=== PATIENT | female | born 1945 | race African-American/Black ===

== ENCOUNTER 2019-11-21 19:45 | Inpatient (IN) | payer OTHER ==
--- NOTE | 2019-11-21 20:03 | PDOC ---
Rapid Medical Evaluation Chief Complaint: Altered Mental Status Time Seen by Provider: 11/21/19 19:57 Medical Evaluation: 11/21/19 19:59 74 year old with pancreatitic CA BIB daughter c/o periods of confusion since yesterday after taking percocet. patient sent for evaluation since periods of confusion continued today. denies fever/ chills. patient seen at urgent care and was sent to ER for evaluation. PE: patient is Alert ox3. Last Vital Signs Temp Pulse Resp BP Pulse Ox 98.5 F 100 H 19 115/49 L 99 11/21/19 19:56 11/21/19 19:56 11/21/19 19:56 11/21/19 19:56 11/21/19 19:56 Oncologist : Dr. Sawyer Fried A: AMS P: LAbs EKG 11/21/19 20:02 Discharge Disposition - Diagnosis AMS (altered mental status) Qualifiers: Altered mental status type: disorientation Qualified Code(s): R41.0 - Disorientation, unspecified - Referrals - Patient Instructions - Post Discharge Activity
--- NOTE | 2019-11-21 20:40 | PDOC ---
History of Present Illness - General Chief Complaint: Altered Mental Status Stated Complaint: SICK Time Seen by Provider: 11/21/19 19:57 - History of Present Illness Initial Comments: This is a 74 YOF h/o DVT and pancreatic cancer presenting with AMS of 3 days duration. Patient reports that she was diagnosed with pancreatic cancer one week ago and has undergone 2 bouts of chemotherapy. Since this time she has had a decreased appetite and fatigue. On Thursday she began taking marinol and oxycodone and since then has been confused, weak, tired, and "not herself". She additionally adds that approximately 2 weeks ago she was diagnosed with a DVT in her right leg and has since been taking eloquis. She denies CP, SOB, cough, N/V/ D, fever, chills, changes in bowel or urinary habits, or recent falls/ trauma. Constitutional: No Weight Change, No Fever, No Chills, No Night Sweats, No Fatigue, No Malaise ENT/Mouth: No Hearing Changes, No Ear Pain, No Nasal Congestion, No Sinus Pain, No Hoarseness, No sore throat, No Rhinorrhea, No Swallowing Difficulty Eyes: No Eye Pain, No Swelling, No Redness, No Foreign Body, No Discharge, No Vision Changes Cardiovascular: No Chest Pain, No SOB, No PND, No Dyspnea on Exertion, No Or thopnea, No Claudication, No Edema, No Palpitations Respiratory: No Cough, No Sputum, No Wheezing, No Smoke Exposure, No Dyspnea Gastrointestinal: No Nausea, No Vomiting, No Diarrhea, No Constipation, No Pain, No Heartburn, No Anorexia, No Dysphagia, No Hematochezia, No Melena, No Flatulence, No Jaundice Genitourinary: No Dysmenorrhea, No DUB, No Dyspareunia, No Dysuria, No Urinary Frequency, No Hematuria, No Urinary Incontinence, No Urgency, No Flank Pain, No Urinary Flow Changes, No Hesitancy Musculoskeletal: No Arthralgias, No Myalgias, No Joint Swelling, No Joint Stiffness, No Back Pain, No Neck Pain, No Injury History Skin: No Skin Lesions, No Pruritis, No Hair Changes, No Breast/Skin Changes, No Nipple Discharge Neuro: No Weakness, No Numbness, No Paresthesias, No Loss of Consciousness, No Syncope, No Dizziness, No Headache, No Coordination Changes, No Recent Falls Psych: No Anxiety/Panic, No Depression, No Insomnia, No Personality Changes, No Delusions, No Rumination, No SI/HI/AH/VH, No Social Issues, No Memory Changes, No Violence/Abuse Hx., No Eating Concerns Heme/Lymph: No Bruising, No Bleeding, No Transfusions History, No Lymphadenopathy Endocrine: No Polyuria, No Polydipsia, No Temperature Intolerance 11/21/19 22:03 Past History - Medical History Allergies/Adverse Reactions: Allergies Allergy/AdvReac Type Severity Reaction Status Date / Time codeine Allergy Verified 11/21/19 21:56 dronabinol [From Marinol] Allergy Verified 11/24/19 11:02 oxycodone Allergy Verified 11/24/19 11:02 Home Medications: Ambulatory Orders Apixaban [Eliquis] 2.5 mg PO BID 11/22/19 Metformin HCl [Glucophage] 500 mg PO DAILY 11/22/19 Pantoprazole Sodium [Protonix] 40 mg PO DAILY 11/22/19 Cancer: Yes (pancreatic) COPD: No Diabetes: Yes - Psycho-Social/Smoking History Smoking History: Never smoked - Substance Abuse Hx (Audit-C & DAST Scrn) How often the patient has a drink containing alcohol: Never Score: In Men: 4 or > Positive; In Women: 3 or > Positive: 0 Screen Result (Pos requires Nsg. Audit-10AR): Negative In the last yr the pt used illegal drug/Rx for NonMed reason: No Score: Yes response is considered Positive: 0 Screen Result (Positive result requires Nsg. DAST-10): Negative *Physical Exam - Vital Signs Last Vital Signs Temp Pulse Resp BP Pulse Ox 98.5 F 100 H 19 115/49 L 99 11/21/19 19:56 11/21/19 19:56 11/21/19 19:56 11/21/19 19:56 11/21/19 19:56 - Physical Exam General Appearance: Yes: Appropriately Dressed, Thin HEENT: positive: EOMI, DEENA, Normal ENT Inspection, Normal Voice Neck: positive: Trachea midline, Normal Thyroid, Supple Respiratory/Chest: positive: Lungs Clear, Normal Breath Sounds Cardiovascular: positive: Regular Rhythm, S1, S2 Gastrointestinal/Abdominal: positive: Normal Bowel Sounds, Flat, Soft Musculoskeletal: positive: Normal Inspection Extremity: positive: Normal Capillary Refill, Normal Inspection, Normal Range of Motion Integumentary: positive: Normal Color, Dry, Warm Neurologic: positive: career center advisor II-XII NML intact, Fully Oriented, Alert, Normal Mood/Affect, Normal Response, Motor Strength 09/05 ED Treatment Course - LABORATORY CBC & Chemistry Diagram: 11/22/19 05:53 11/22/19 05:53 Medical Decision Making - Medical Decision Making This is a 74 YOF h/o DVT and pancreatic cancer presenting with AMS of 3 days duration. Patient reports that she was diagnosed with pancreatic cancer one week ago and has undergone 2 bouts of chemotherapy. Since this time she has had a decreased appetite and fatigue. On Thursday she began taking marinol and oxycodone and since then has been confused, weak, tired, and "not herself". She additionally adds that approximately 2 weeks ago she was diagnosed with a DVT in her right leg and has since been taking eloquis. She denies CP, SOB, cough, N/V/D, fever, chills, changes in bowel or urinary habits, or recent falls/ trauma. Physical exam including neuro exam are wnl. Selected Entries 11/21/19 19:56 Temperature 98.5 F Pulse Rate 100 H Respiratory 19 Rate Blood Pressure 115/49 L Blood Pressure 71 Mean O2 Sat by Pulse 99 Oximetry (%) Weight 53.524 kg ddx includes but is not limited to: malaise, anemia, side effects related to chemotheraputic agents and pain medications, CVA, UTI, Pneumonia plan: CXR, CT head, UA/UC, CBC, CMP, 1LNS Reassess: Troponin came back positive at 2.23. Ct scan shows a small low density focus involving the right frontal lobe that appears to represent age indeterminate encephalomalacia. Labs and imagining otherwise wnl. Will admit patient for elevated troponin. dispo: admit patient to tele. Discharge - Discharge Information Problems reviewed: Yes Clinical Impression/Diagnosis: AMS (altered mental status), Elevated troponin Condition: Improved Disposition: HOME - Follow up/Referral - Patient Discharge Instructions - Post Discharge Activity
--- NOTE | 2019-11-21 21:49 | PDOC ---
Documentation entered by Jessy Monteiro SCRIBE, acting as scribe for Vivienne Artis MD. Vivienne Artis MD: This documentation has been prepared by the Justin desir Xhesika, SCRIBE, under my direction and personally reviewed by me in its entirety. I confirm that the documentation accurately reflects all work, treatment, procedures, and medical decision making performed by me. Attending Attestation - Resident Resident Name: Marcio Cruz - ED Attending Attestation I have performed the following: I have examined & evaluated the patient, The case was reviewed & discussed with the resident, I agree w/resident's findings & plan, Exceptions are as noted - HPI HPI: 11/21/19 20:44 The patient is a 74 year old F with a PMH of pancreatitic CA (2 rounds of chemo), recent DVT on eliquis who presents to the ED with intermittent AMS. Per daughter the pt has been having periods of confusion since yesterday after taking percocet, which continued today. Per daughter, the patient took percocet on Thursday (11/17), and was "out of it all day," then took it again Thursday (11/18) and was fine. Daughter states, yesterday (11/19) she took another percocet and was altered again, prompting her arrival to the ED today. Allergies: NKDA Oncologist: Dr. Henriquez - [facility] - Physicial Exam PE: 11/21/19 21:41 thin 74 yo female presents becaduse of dughter;s concern about her alertness which has been waxing and waning over past 3 days head ncat neck supple lungs cta b.l cvs [id number] abd flat extremities no erythema skin warm and dry neuro alert and conversant,motor strength 5/5 b/l - Medical Decision Making 11/21/19 21:49 Diagnosed in September w pancreatic cancer and currently on chemotherapy Dr Sawyer Fried was being covered by Dr Enrrique Fried and I spoke with him. the original plan was to check her UA and ct scan of head and if they were normal she would followup with them but then her troponin came back positive at 2.23 11/21/19 23:11 11/21/19 23:31 07/21/20 01:55 ct scan of head -there is a tiny low density focus involving the right frontal lobe tht appears to represent age indeterminate encephalomalacia admit tele 11/22/19 02:15 Discharge - Discharge Information Problems reviewed: Yes Clinical Impression/Diagnosis: Elevated troponin AMS (altered mental status) Qualifiers: Altered mental status type: disorientation Qualified Code(s): R41.0 - Disorientation, unspecified - Follow up/Referral - Patient Discharge Instructions - Post Discharge Activity
[2019-11-21 21:56] LABS: BASO % 0.6 % (0-2.0); EOS % 2.4 % (0-4.5); HEMOGLOBIN 8.1 GM/dL (10.7-15.3); LYMPH % 32.6 % (8-40); MCH 32.7 pg (25.7-33.7); MCHC 33.8 g/dl (32.0-36.0); MEAN CELL VOLUME 96.7 fl (80-96); MEAN PLT VOLUME 8.2 fl (7.5-11.1); MONO % 14.1 % (3.8-10.2); NEUT % 50.3 % (42.8-82.8); PLATELET COUNT 257 K/MM3 (134-434); RBC 2.48 M/mm3 (3.60-5.2); RDW 15.9 % (11.6-15.6); WHITE BLOOD COUNT 7.7 K/mm3 (4.0-10.0)
[2019-11-21 22:15] LABS: INR 1.34 (0.83-1.09); PROTHROMBIN TIME (PATIENT) 15.8 SEC (9.7-13.0)
[2019-11-21 22:18] LABS: ACTIVATED PTT 24.2 SECONDS (25.2-36.5)
[2019-11-21 22:35] LABS: ALBUMIN 3.1 g/dl (3.4-5.0); BLOOD UREA NITROGEN 9.1 mg/dL (7-18); CALCIUM 9.1 mg/dL (8.5-10.1); CREATININE 0.5 mg/dL (0.55-1.3); TOT PROT 6.9 g/dl (6.4-8.2)
[2019-11-21 22:35] LABS: EPI CELLS 29 /uL (0-25.1); HYALINE CASTS 7 /uL (0-3.1); PH,URINE 5.5 (5.0-8.0); URINE APPEARANCE CLEAR; URINE BACTERIA 97 /uL (0-1359); URINE BILIRUBIN NEGATIVE (NEGATIVE); URINE COLOR YELLOW; URINE GLUCOSE (UA) NEGATIVE (NEGATIVE); URINE KETONE TRACE (NEGATIVE); URINE LEUK ESTERASE TRACE (NEGATIVE); URINE NITRITE NEGATIVE (NEGATIVE); URINE PROTEIN 1+ (NEGATIVE); URINE RBC 18 /uL (0-23.9); URINE WBC 25 /uL (0-25.8)
[2019-11-21 22:45] LABS: BILIRUBIN,TOTAL 0.6 mg/dL (0.2-1)
--- NOTE | 2019-11-22 01:50 | PN ---
Teaching Attending Note Name of Resident: Cynthia Harris ATTENDING PHYSICIAN STATEMENT I saw and evaluated the patient. I reviewed the resident's note and discussed the case with the resident. I agree with the resident's findings and plan as documented. SUBJECTIVE: Patient is a 74 year old woman with a PMH of DVT and Pancreatic cancer (on chemotherapy) presenting with AMS of 3 days duration. Patient reports that she was diagnosed with pancreatic cancer one week ago and has undergone 2 bouts of chemotherapy. Since then she has had decreased appetite and fatigue. On Thursday she began taking Marinol and Oxycodone and since then has been confused, weak, tired, and "not herself". She additionally adds that approximately 2 weeks ago she was diagnosed with a DVT in her right leg and has since been taking Eliquis. Patient denies chest pain, shortness of breath, abdominal pain, headache, palpitations, dizziness, fever, chills, nausea, vomiting, diarrhea, constipation, dysuria, frequency, urgency, melena, hematochezia or hematuria. Denies alcohol, tobacco or illicit drug use. No sick contacts or recent travels. Family history is unremarkable. OBJECTIVE: Alert and weak; unable to check orthostasis Vital Signs Period Temp Pulse Resp BP Sys/Zepeda Pulse Ox Last 24 Hr 98.5 F 100 19 115/49 99 HEENT: No Jaundice, eye redness or discharge, PERRLA, EOMI. Normocephalic, atraumatic. External ears are normal and hearing is grossly intact. No nasal discharge. Neck: Supple, nontender. No palpable adenopathy or thyromegaly. No JVD Chest: Good effort. Clear to auscultation and percussion. Heart: Regular. No S3, rub or murmur Abdomen: Not distended, soft, epigastric tenderness and no HSM. No rebound or guarding. Normal bowel sounds. Ext: Peripheral pulses intact. No leg edema. Skin: Warm and dry. No petechiae, rash or ecchymosis. Neuro: Alert. Oriented to person and place. Global weakness. CN 2-12 grossly intact. Sensation grossly intact in all four extremities and DTR are symmetric. Psych: Appropriate mood and affect. Good insight. Abnormal Lab Results 11/21/19 11/21/19 11/21/19 21:40 21:40 21:40 RBC 2.48 L Hgb 8.1 L Hct 24.0 L MCV 96.7 H RDW 15.9 H Monocytes % 14.1 H PT with INR 15.80 H INR 1.34 H PTT (Actin FS) 24.2 L Sodium 132 L Chloride 96 L Creatinine 0.5 L AST 75 H Alkaline Phosphatase 362 H Troponin I 2.23 H* Albumin 3.1 L Urine Protein Urine Ketones 11/21/19 11/22/19 21:44 01:07 RBC Hgb Hct MCV RDW Monocytes % PT with INR INR PTT (Actin FS) Sodium Chloride Creatinine AST Alkaline Phosphatase Troponin I 2.15 H* Albumin Urine Protein 1+ H Urine Ketones Trace H Current Medications Generic Name Dose Route Start Last Admin Trade Name Freq PRN Reason Stop Dose Admin Acetaminophen 1,000 mg 11/22/19 04:15 Ofirmev Injection - IVPB Q6H PRN PAIN LEVEL 6-10 Sodium Chloride 1,000 mls @ 75 mls/hr 11/22/19 04:15 11/22/19 04:56 Normal Saline - IV 75 mls/hr ASDIR ADELAIDA Administration Ceftriaxone Sodium 1 gm/ 50 mls @ 200 mls/hr 11/22/19 10:00 Dextrose IVPB DAILY ADELAIDA Protocol Insulin Aspart 0 vial 11/22/19 07:00 Novolog Vial Sliding Scale - SQ ACHS ADELAIDA Protocol Ketorolac Tromethamine 15 mg 11/22/19 04:19 Toradol Injection - IVPUSH 11/27/19 04:18 Q4H PRN PAIN LEVEL 6-10 ASSESSMENT AND PLAN: 1. Acute confusional state/Elevated troponin/?UTI - AMS likely due to drug side effects (Marinol/Oxycodone) and debility associated with cancer and chemotherapy. No acute intracranial abnormality on head CT. CXR shows right chest central line but no acute abnormality. Will hold Marinol and Oxycodone, hydrate gently and treat UTI with IV Ceftriaxone. Consult Neurology and Oncology. EKG shows NSR at 91/minute and QTc [address]-T wave changes. Troponin is elevated but not rising (2.23; 2.15) and she is not having chest pain. Will admit to telemetry, trend troponin, get ECHO, fasting lipids and consult Cardiology. Viral testing for COVID-19 ordered and patient placed on airborne, droplet and contact isolation. Started on supplemental oxygen via nasal cannula. Hyponatremia likely partly due to poor solute intake. Will ensure adequate caloric intake, give IV NS and limit free water intake. Will continue comprehensive care for all of patients comorbid conditions. 2. Hypoalbuminemia - Possibly due to combined effects of proteinuria, malnutrition and inflammation associated with comorbid conditions. Will ensure adequate dietary protein intake and also consult dispatcher relay. 3. Anemia - Likely partly due to cancer. Will do basic anemia work up including folate/B12 levels, serial stool guaiacs, reticulocyte count and iron studies. 4. DVT prophylaxis - On Eliquis for DVT. 5. Advance directives - Full code
[2019-11-22] MEDS ORDERED: ACETAMINOPHEN 1000 MG/100 ML VIAL (NON FORMULARY) IVPB PRN (04:15)
[2019-11-22] MEDS ORDERED: KETOROLAC TROMETHAMINE 15 MG/ML VIAL IVPUSH PRN (04:19)
[2019-11-22] MEDS: SODIUM CHLORIDE 1,000 ML IV SCH (04:56)
--- NOTE | 2019-11-22 06:07 | HP ---
CHIEF COMPLAINT: AMS HISTORY OF PRESENT ILLNESS: Pt is a 74 year old female with a PMHx of pancreatic cancer diagnosed 1 month ago (2 rounds of chemo done), R leg DVT on Eliquis, and DM. Daughter completing most of history as patient is lethargic. Pt completed 2 rounds of chemo and on oxycodone and marinol on Thursday and noticed pt became very lethargic. The next day, oxycodone was taken without marinol and there were no symptoms. On Thursday, pt took oxycodone again and once again became lethargic that continued into Thursday. Denies any LOC, trauma. Daughter then brought pt to the ER for ongoing symptoms. Trops in ED 2.33 and 2.15. EKG without any ischemic changes. Pt had leg pain last week and oncologist did LE US which showed DVT, being treated with Eliquis. Denies fever and chills, chest pain, SOB, palpitations, leg edema, pain, issues. Admits to epigastric abdominal pain and lethargy and weakness. PAST MEDICAL HISTORY: As stated above PAST SURGICAL HISTORY: Cholecystectomy Hysterecomy Social History: Smoking: Denies Alcohol: Socially Drugs: Denies Allergies codeine Allergy (Verified 11/21/19 21:56) HOME MEDICATIONS: REVIEW OF SYSTEMS CONSTITUTIONAL: Admits: lethargy, loss of appetite Absent: fever, chills, diaphoresis, malaise, weight change HEENT: Absent: rhinorrhea, nasal congestion, throat pain, throat swelling, difficulty swallowing, mouth swelling, ear pain, eye pain, visual changes CARDIOVASCULAR: Absent: chest pain, syncope, palpitations, irregular heart rate, lightheadedness, peripheral edema RESPIRATORY: Absent: cough, shortness of breath, dyspnea with exertion, orthopnea, wheezing, stridor, hemoptysis GASTROINTESTINAL: Present: abdomnial pain Absent: abdominal pain, abdominal distension, nausea, vomiting, diarrhea, constipation, melena, hematochezia GENITOURINARY: Absent: dysuria, frequency, urgency, hesitancy, hematuria, flank pain, genital pain MUSCULOSKELETAL: Absent: myalgia, arthralgia, joint swelling, back pain, neck pain SKIN: Absent: rash, itching, pallor HEMATOLOGIC/IMMUNOLOGIC: Absent: easy bleeding, easy bruising, lymphadenopathy, frequent infections ENDOCRINE: Absent: unexplained weight gain, unexplained weight loss, heat intolerance, cold intolerance NEUROLOGIC: Absent: headache, focal weakness or paresthesias, dizziness, unsteady gait, seizure, mental status changes, bladder or bowel incontinence PSYCHIATRIC: Absent: anxiety, depression, suicidal or homicidal ideation, hallucinations. PHYSICAL EXAMINATION Vital Signs - 24 hr 11/21/19 11/22/19 19:56 04:45 Temperature 98.5 F 98.3 F Pulse Rate 100 H Pulse Rate [ 100 H Radial] Respiratory 19 18 Rate Blood Pressure 115/49 L Blood Pressure 135/82 [Left Arm] O2 Sat by Pulse 99 100 Oximetry (%) GENERAL: Awake, alert, and fully oriented, in no acute distress. HEAD: Normal with no signs of trauma. EYES: Pupils equal, round and reactive to light, extraocular movements intact, sclera anicteric, conjunctiva clear. No lid lag. EARS, NOSE, THROAT: Ears normal, nares patent, oropharynx clear without exudates. Moist mucous membranes. NECK: Normal range of motion, supple without lymphadenopathy, JVD, or masses. LUNGS: Breath sounds equal, clear to auscultation bilaterally. No wheezes, and no crackles. No accessory muscle use. HEART: Regular rate and rhythm, normal S1 and S2 without murmur, rub or gallop. ABDOMEN: Epigastric tenderness. normoactive bowel sounds, no guarding, no rebound, no masses. No hepatomegaly or splenomegaly. MUSCULOSKELETAL: Normal range of motion at all joints. No bony deformities or tenderness. No CVA tenderness. UPPER EXTREMITIES: 2+ pulses, warm, well-perfused. No cyanosis. No clubbing. No peripheral edema. LOWER EXTREMITIES: 2+ pulses, warm, well-perfused. No calf tenderness. No peripheral edema. NEUROLOGICAL: Cranial nerves II-XII intact. Normal speech. Normal gait. PSYCHIATRIC: Cooperative. Good eye contact. Appropriate mood and affect. SKIN: Warm, dry, normal turgor, no rashes or lesions noted, normal capillary refill. Laboratory Results - last 24 hr 11/21/19 11/21/19 11/21/19 21:40 21:40 21:40 WBC 7.7 RBC 2.48 L Hgb 8.1 L Hct 24.0 L MCV 96.7 H MCH 32.7 MCHC 33.8 RDW 15.9 H Plt Count 257 MPV 8.2 Absolute Neuts (auto) 3.9 Neutrophils % 50.3 Lymphocytes % 32.6 Monocytes % 14.1 H Eosinophils % 2.4 Basophils % 0.6 Nucleated RBC % 0 PT with INR 15.80 H INR 1.34 H PTT (Actin FS) 24.2 L Sodium 132 L Potassium 4.0 Chloride 96 L Carbon Dioxide 28 Anion Gap 8 BUN 9.1 Creatinine 0.5 L Est GFR (CKD-EPI)AfAm 112.07 Est GFR (CKD-EPI)NonAf 96.69 Random Glucose 95 Calcium 9.1 Total Bilirubin 0.6 AST 75 H ALT 39 Alkaline Phosphatase 362 H Creatine Kinase 127 Troponin I 2.23 H* Total Protein 6.9 Albumin 3.1 L Urine Color Urine Appearance Urine pH Ur Specific [place] Urine Protein Urine Glucose (UA) Urine Ketones Urine Blood Urine Nitrite Urine Bilirubin Urine Urobilinogen Ur Leukocyte Esterase Urine WBC (Auto) Urine RBC (Auto) Urine Casts (Auto) U Epithel Cells (Auto) Urine Bacteria (Auto) Blood Type Antibody Screen 11/21/19 11/22/19 11/22/19 21:44 01:07 01:07 WBC RBC Hgb Hct MCV MCH MCHC RDW Plt Count MPV Absolute Neuts (auto) Neutrophils % Lymphocytes % Monocytes % Eosinophils % Basophils % Nucleated RBC % PT with INR INR PTT (Actin FS) Sodium Potassium Chloride Carbon Dioxide Anion Gap BUN Creatinine Est GFR (CKD-EPI)AfAm Est GFR (CKD-EPI)NonAf Random Glucose Calcium Total Bilirubin AST ALT Alkaline Phosphatase Creatine Kinase 116 Troponin I 2.15 H* Total Protein Albumin Urine Color Yellow Urine Appearance Clear Urine pH 5.5 Ur Specific [place] 1.020 Urine Protein 1+ H Urine Glucose (UA) Negative Urine Ketones Trace H Urine Blood Trace Urine Nitrite Negative Urine Bilirubin Negative Urine Urobilinogen 1.0 Ur Leukocyte Esterase Trace Urine WBC (Auto) 25 Urine RBC (Auto) 18 Urine Casts (Auto) 7 U Epithel Cells (Auto) 29 Urine Bacteria (Auto) 97 Blood Type A POSITIVE Antibody Screen Negative ASSESSMENT/PLAN: Pt is a #AMS -Likely secondary to oxycodone and marinol; hold -Switched to Ketorolac and Tylenol -Consulted neurology to rue out other causes #Elevated troponins -Follow up AM troponin -Repeat EKG in AM -Echo in AM -Cardio consulted -Studies show FOLFARINOX can be associated with increased troponin and vasopasm -Another study shows certain cancers (including pancreatic) can have over expression of Troponin gene #Pancreatic Cancer -Consulted oncology -Palliative care consulted to discuss goals of care #UTI -Started on Rocephin for UTI -Treated ensure UTI wasnt possible cause of AMS #Transaminitis -AST 75, ALP 362 -RUQ US to evaluate -Possibly secondary to pancreas obstructing biliary ducts #Anemia -Likely secondary to cancer -B12, folate, retic, FOBT ordered #Hyponatremia -On NS at 75cc hr -Follow up AM labs Prophylaxis: On Eliquis for DVT FEN: -NS at 75cc hr -Diabetic diet Dispo Family Medical History Family History: Unremarkable Problem List - Problem (1) Elevated troponin Code(s): R79.89 - OTHER SPECIFIED ABNORMAL FINDINGS OF BLOOD CHEMISTRY (2) Pancreatic cancer Code(s): C25.9 - MALIGNANT NEOPLASM OF PANCREAS, UNSPECIFIED Qualifiers: Pancreatic malignancy location: unspecified Qualified Code(s): C25.9 - Malignant neoplasm of pancreas, unspecified (3) AMS (altered mental status) Code(s): R41.82 - ALTERED MENTAL STATUS, UNSPECIFIED Qualifiers: Altered mental status type: disorientation Qualified Code(s): R41.0 - Disorientation, unspecified Visit type - Medication Review Med list reviewed for High Risk Meds patients 65 and older: No - Emergency Visit Emergency Visit: Yes ED Registration Date: 11/22/19 Care time: The patient presented to the Emergency Department on the above date and was hospitalized for further evaluation of their emergent condition. - New Patient This patient is new to me today: Yes Date on this admission: 11/22/19 - Critical Care Critical Care patient: No ATTENDING PHYSICIAN STATEMENT I saw and evaluated the patient. I reviewed the resident's note and discussed the case with the resident. I agree with the resident's findings and plan as documented. SUBJECTIVE: OBJECTIVE: ASSESSMENT AND PLAN:
[2019-11-22 07:05] LABS: BASO % 0.4 % (0-2.0); EOS % 2.3 % (0-4.5); HEMATOCRIT 21.8 % (32.4-45.2); HEMOGLOBIN 7.4 GM/dL (10.7-15.3); LYMPH % 29.8 % (8-40); MCH 32.6 pg (25.7-33.7); MCHC 33.7 g/dl (32.0-36.0); MEAN CELL VOLUME 96.7 fl (80-96); MEAN PLT VOLUME 8.2 fl (7.5-11.1); MONO % 16.7 % (3.8-10.2); NEUT % 50.8 % (42.8-82.8); PLATELET COUNT 213 K/MM3 (134-434); RBC 2.26 M/mm3 (3.60-5.2); RDW 15.8 % (11.6-15.6); WHITE BLOOD COUNT 6.6 K/mm3 (4.0-10.0)
[2019-11-22] MEDS: INSULIN SLIDING SCALE (NOVOLOG) 1 VIAL SQ SCH ×4 (07:22→22:55)
[2019-11-22 07:43] LABS: ALBUMIN 2.6 g/dl (3.4-5.0); BILIRUBIN,TOTAL 0.6 mg/dL (0.2-1); BLOOD UREA NITROGEN 7.8 mg/dL (7-18); CALCIUM 8.3 mg/dL (8.5-10.1); CREATININE 0.5 mg/dL (0.55-1.3); MAGNESIUM 2.3 mg/dL (1.8-2.4); PHOSPHOROUS 2.8 mg/dL (2.5-4.9); POTASSIUM 3.8 mmol/L (3.5-5.1); TOT PROT 6.1 g/dl (6.4-8.2)
[2019-11-22] MEDS ORDERED: CEFTRIAXONE 1 GM/50 ML BAG ONE (09:37)
[2019-11-22] MEDS ORDERED: APIXABAN 2.5 MG TABLET ONE ×2 (09:37)
[2019-11-22] MEDS ORDERED: CEFTRIAXONE 1 GM in DEXTROSE 5%-WATER - 50 ML IVPB SCH (10:00)
[2019-11-22] MEDS: APIXABAN 5 MG TABLET PO SCH ×2 (11:10→22:54)
--- NOTE | 2019-11-22 11:18 | ECHO ---
Name: LISS SALAZAR Exam:Adult Echocardiogram Study Date: 11/22/2019 09:17 AM Age: 74 yrs Reason For Study: heart function MMode/2D Measurements & Calculations IVSd: 0.88 cm Ao root diam: 2.5 cm LVIDd: 3.1 cm LA dimension: 2.2 cm LVIDs: 2.3 cm LVPWd: 1.2 cm LVPWs: 1.5 cm EDV(Teich): 38.6 ml ESV(Teich): 17.5 ml LVOT diam: 1.9 cm Doppler Measurements & Calculations MV E max valery: 61.6 cm/sec Ao V2 max: 108.1 cm/sec MV A max valery: 83.4 cm/sec Ao max P.7 mmHg MV E/A: 0.74 SABINA(V,D): 2.1 cm2 MV dec time: 0.11 sec LV V1 max P.6 mmHg TR max valery: 211.7 cm/sec LV V1 max: 80.5 cm/sec TR max P.3 mmHg PA V2 max: 107.9 cm/sec PA max P.7 mmHg Procedure A two-dimensional transthoracic echocardiogram with color flow and Doppler was performed. The patient was in normal sinus rhythm during the exam. Left Ventricle The left ventricle is normal in size. The left ventricular ejection fraction is normal. Ejection Frac tion = 60. The transmitral spectral Doppler flow pattern is suggestive of impaired LV relaxation. Right Ventricle The right ventricle is not well visualized. Atria Normal left and right atrial size and function. Mitral Valve The mitral valve is normal. There is trace mitral regurgitation. Tricuspid Valve The tricuspid valve is normal. There is mild tricuspid regurgitation. Right ventricular systolic pres sure is normal. Aortic Valve The aortic valve is normal in structure and function. No aortic regurgitation is present. Pulmonic Valve The pulmonic valve is not well seen, but is grossly normal. Trace pulmonic valvular regurgitation. Great Vessels The aortic root is normal size. Pericardium/Pleura There is no pericardial effusion. Interpretation Summary The left ventricular ejection fraction is normal. The transmitral spectral Doppler flow pattern is suggestive of impaired LV relaxation. The right ventricle is not well visualized. There is trace mitral regurgitation. There is mild tricuspid regurgitation. Trace pulmonic valvular regurgitation. There is no pericardial effusion. MD Bandar Canales 11/22/2019 11:17 AM
--- NOTE | 2019-11-22 12:05 | EKG ---
Test Reason : Blood Pressure : / mmHG Vent. Rate : 091 BPM Atrial Rate : 091 BPM P-R Int : 142 ms QRS Dur : 076 ms QT Int : 354 ms P-R-T Axes : 074 058 060 degrees QTc Int : 435 ms NORMAL SINUS RHYTHM NORMAL ECG NO PREVIOUS ECGS AVAILABLE Confirmed by Torey Bond MD ([id number]) on 11/22/2019 12:05:01 PM Referred By: Confirmed By:Torey Bond MD
--- NOTE | 2019-11-22 12:05 | EKG ---
Test Reason : Blood Pressure : / mmHG Vent. Rate : 093 BPM Atrial Rate : 093 BPM P-R Int : 144 ms QRS Dur : 086 ms QT Int : 346 ms P-R-T Axes : 078 060 062 degrees QTc Int : 430 ms NORMAL SINUS RHYTHM MINIMAL VOLTAGE CRITERIA FOR LVH, MAY BE NORMAL VARIANT BORDERLINE ECG WHEN COMPARED WITH ECG OF 21-NOV-2019 22:17, NO SIGNIFICANT CHANGE WAS FOUND Confirmed by Torey Bond MD ([id number]) on 11/22/2019 12:04:45 PM Referred By: Abhijit VO Confirmed By:Torey Bond MD
--- NOTE | 2019-11-22 12:12 | CONSULT ---
Consultation: REQUESTING PROVIDER: Dr. Sanchez CONSULT REQUEST: We have been asked to medically evaluate this patient for Hx. of Pancreatic CA and to rule out involvement of the brain causing altered mental status. HISTORY OF PRESENT ILLNESS: Pt. is a 74 y.o. F w/ PMHx. of DM2, GERD(noted to have gastric ulcer in EGD September), RLE DVT(on Eliquis), and Metastatic Pancreatic CA(Ddx. 1 month ago, s/p 2 rounds of FOLFIRINOX- last on ). Pt. states she had CT scan of her abdomen demonstrating metastases to her liver and believes she had imaging of her chest. Pt. denies having a Brain MRI. Pt. states that the symptoms of lethargy, slurred speech and dysphasia(the reason for presenting to the hospital and admission) happened shortly after taking oxycodone and marinol. Pt. unclear about the sequence of events and number of attempts but stated that on Thursday after taking the oxycodone and the marinol that her symptoms began. Pt. denies any black colored stool. Pt. endorses weight loss of over 20 lbs since . Pt. endorses decreased appetite over Thursday and Thursday stating her appetite began to finally improve yesterday. Pt. endorses chronic constipation over the last few months and abdominal pain since July, workup was delayed because of the Pandemic. Pt. endorses numbness in her left hand but s unable to tell me when she first noticed it. Pt. denies having any blood in her urine or stool. Pt. lives in [place] but is staying in [place] with her daughter. Pt. unsure of her return date to [place]. Pt. is a retired [employer] for a "[employer] in [place]" Pt. endorses Hx. of Breast CA in her mother diagnosed at age 82 Pt. states she gets "pains in her stomach" from codeine and was told not to take anymore codeine. Pt. denies taking oxycodone prior to this experience. Discussed with Dr. Mauricio Fried that Pt. had an episode of tarry black stool after first course of treatment and was seen at [facility]. Pt. had unremarkable EGD (11/04). Pt. was later found to have R. Peroneal DVT and started on Eliquis 2.5mg by Dr. Fried. Last recorded HgB at his office on 11/13 was 8.8/26. Pt. did not have any head imaging as there was no indication to do so. REVIEW OF SYSTEMS: As above PHYSICAL EXAMINATION Vital Signs - 24 hr 11/21/19 11/22/19 11/22/19 19:56 04:45 06:30 Temperature 98.5 F 98.3 F 98.4 F Pulse Rate 100 H Pulse Rate [ 100 H 97 H Radial] Respiratory 19 18 16 Rate Blood Pressure 115/49 L Blood Pressure 135/82 152/77 [Left Arm] O2 Sat by Pulse 99 100 100 Oximetry (%) 11/22/19 11/22/19 08:00 11:00 Temperature Pulse Rate Pulse Rate [ 92 H Radial] Respiratory 16 Rate Blood Pressure Blood Pressure 160/85 [Left Arm] O2 Sat by Pulse 99 100 Oximetry (%) GENERAL: Awake, alert, and fully oriented, in no acute distress. HEAD: Normal with no signs of trauma. EYES: Pupils equal, round and reactive to light, extraocular movements intact, sclera anicteric, conjunctiva clear. EARS, NOSE, THROAT: Moist mucous membranes. LUNGS: Breath sounds equal, clear to auscultation bilaterally. No wheezes, and no crackles. No accessory muscle use. HEART: Regular rate and rhythm, normal S1 and S2 without murmur ABDOMEN: Soft, LUQ and epigastric tenderness tender, not distended, normoactive bowel sounds MUSCULOSKELETAL: Normal range of motion at all joints. No CVA tenderness. UPPER EXTREMITIES: warm, well-perfused. No cyanosis. No clubbing. No peripheral edema. LOWER EXTREMITIES: 2+ dorsal pedal pulses, warm, well-perfused. No calf tenderness. No peripheral edema. NEUROLOGICAL: Cranial nerves II-XII intact. Some confusion finding words, and speed of speech. Gait not assessed. Left hand numbness compared to the right. Lower extremities with equal sensation. PSYCHIATRIC: Cooperative. Good eye contact. Appropriate mood and affect. SKIN: Warm, dry, normal turgor, no rashes or lesions noted. Laboratory Results - last 24 hr 11/21/19 11/21/19 11/21/19 21:40 21:40 21:40 WBC 7.7 RBC 2.48 L Hgb 8.1 L Hct 24.0 L MCV 96.7 H MCH 32.7 MCHC 33.8 RDW 15.9 H Plt Count 257 MPV 8.2 Absolute Neuts (auto) 3.9 Neutrophils % 50.3 Lymphocytes % 32.6 Monocytes % 14.1 H Eosinophils % 2.4 Basophils % 0.6 Nucleated RBC % 0 Retic Count PT with INR 15.80 H INR 1.34 H PTT (Actin FS) 24.2 L Sodium 132 L Potassium 4.0 Chloride 96 L Carbon Dioxide 28 Anion Gap 8 BUN 9.1 Creatinine 0.5 L Est GFR (CKD-EPI)AfAm 112.07 Est GFR (CKD-EPI)NonAf 96.69 POC Glucometer Random Glucose 95 Calcium 9.1 Phosphorus Magnesium Iron TIBC Iron Saturation Unsaturated IBC Total Bilirubin 0.6 AST 75 H ALT 39 Alkaline Phosphatase 362 H Creatine Kinase 127 Troponin I 2.23 H* Total Protein 6.9 Albumin 3.1 L Vitamin B12 Serum Folate Urine Color Urine Appearance Urine pH Ur Specific [place] Urine Protein Urine Glucose (UA) Urine Ketones Urine Blood Urine Nitrite Urine Bilirubin Urine Urobilinogen Ur Leukocyte Esterase Urine WBC (Auto) Urine RBC (Auto) Urine Casts (Auto) U Epithel Cells (Auto) Urine Bacteria (Auto) Blood Type Antibody Screen 11/21/19 11/22/19 11/22/19 21:44 01:07 01:07 WBC RBC Hgb Hct MCV MCH MCHC RDW Plt Count MPV Absolute Neuts (auto) Neutrophils % Lymphocytes % Monocytes % Eosinophils % Basophils % Nucleated RBC % Retic Count PT with INR INR PTT (Actin FS) Sodium Potassium Chloride Carbon Dioxide Anion Gap BUN Creatinine Est GFR (CKD-EPI)AfAm Est GFR (CKD-EPI)NonAf POC Glucometer Random Glucose Calcium Phosphorus Magnesium Iron TIBC Iron Saturation Unsaturated IBC Total Bilirubin AST ALT Alkaline Phosphatase Creatine Kinase 116 Troponin I 2.15 H* Total Protein Albumin Vitamin B12 Serum Folate Urine Color Yellow Urine Appearance Clear Urine pH 5.5 Ur Specific [place] 1.020 Urine Protein 1+ H Urine Glucose (UA) Negative Urine Ketones Trace H Urine Blood Trace Urine Nitrite Negative Urine Bilirubin Negative Urine Urobilinogen 1.0 Ur Leukocyte Esterase Trace Urine WBC (Auto) 25 Urine RBC (Auto) 18 Urine Casts (Auto) 7 U Epithel Cells (Auto) 29 Urine Bacteria (Auto) 97 Blood Type A POSITIVE Antibody Screen Negative 11/22/19 11/22/19 11/22/19 05:53 05:53 05:53 WBC 6.6 RBC 2.26 L Hgb 7.4 L Hct 21.8 L MCV 96.7 H MCH 32.6 MCHC 33.7 RDW 15.8 H Plt Count 213 MPV 8.2 Absolute Neuts (auto) 3.3 Neutrophils % 50.8 Lymphocytes % 29.8 Monocytes % 16.7 H Eosinophils % 2.3 Basophils % 0.4 Nucleated RBC % 0 Retic Count 1.99 H PT with INR INR PTT (Actin FS) Sodium 137 Potassium 3.8 Chloride 102 Carbon Dioxide 26 Anion Gap 9 BUN 7.8 Creatinine 0.5 L Est GFR (CKD-EPI)AfAm 112.07 Est GFR (CKD-EPI)NonAf 96.69 POC Glucometer Random Glucose 87 Calcium 8.3 L Phosphorus 2.8 Magnesium 2.3 Iron 32 L TIBC 185 L Iron Saturation 17 L Unsaturated IBC 153 L Total Bilirubin 0.6 AST 64 H ALT 34 Alkaline Phosphatase 320 H Creatine Kinase Troponin I 1.80 H* Total Protein 6.1 L Albumin 2.6 L Vitamin B12 2415 H Serum Folate 33 H Urine Color Urine Appearance Urine pH Ur Specific [place] Urine Protein Urine Glucose (UA) Urine Ketones Urine Blood Urine Nitrite Urine Bilirubin Urine Urobilinogen Ur Leukocyte Esterase Urine WBC (Auto) Urine RBC (Auto) Urine Casts (Auto) U Epithel Cells (Auto) Urine Bacteria (Auto) Blood Type Antibody Screen 11/22/19 11/22/19 07:20 10:55 WBC RBC Hgb Hct MCV MCH MCHC RDW Plt Count MPV Absolute Neuts (auto) Neutrophils % Lymphocytes % Monocytes % Eosinophils % Basophils % Nucleated RBC % Retic Count PT with INR INR PTT (Actin FS) Sodium Potassium Chloride Carbon Dioxide Anion Gap BUN Creatinine Est GFR (CKD-EPI)AfAm Est GFR (CKD-EPI)NonAf POC Glucometer 80 105 Random Glucose Calcium Phosphorus Magnesium Iron TIBC Iron Saturation Unsaturated IBC Total Bilirubin AST ALT Alkaline Phosphatase Creatine Kinase Troponin I Total Protein Albumin Vitamin B12 Serum Folate Urine Color Urine Appearance Urine pH Ur Specific [place] Urine Protein Urine Glucose (UA) Urine Ketones Urine Blood Urine Nitrite Urine Bilirubin Urine Urobilinogen Ur Leukocyte Esterase Urine WBC (Auto) Urine RBC (Auto) Urine Casts (Auto) U Epithel Cells (Auto) Urine Bacteria (Auto) Blood Type Antibody Screen Active Medications Generic Name Dose Route Start Last Admin Trade Name Freq PRN Reason Stop Dose Admin Acetaminophen 1,000 mg 11/22/19 04:15 Ofirmev Injection - IVPB Q6H PRN PAIN LEVEL 6-10 Apixaban 5 mg 11/22/19 10:00 11/22/19 11:10 Eliquis - PO 5 mg BID ADELAIDA Administration Sodium Chloride 1,000 mls @ 75 mls/hr 11/22/19 04:15 11/22/19 04:56 Normal Saline - IV 75 mls/hr ASDIR ADELAIDA Administration Ceftriaxone Sodium 1 gm/ 50 mls @ 100 mls/hr 11/22/19 10:00 11/22/19 10:45 Dextrose IVPB 100 mls/hr DAILY ADELAIDA Administration Protocol Insulin Aspart 1 vial 11/22/19 07:00 11/22/19 11:15 Novolog Vial Sliding Scale - SQ Not Given ACHS ADELAIDA Protocol Ketorolac Tromethamine 15 mg 11/22/19 04:19 Toradol Injection - IVPUSH 11/27/19 04:18 Q4H PRN PAIN LEVEL 6-10 ASSESSMENT/PLAN: Pt. is a 74 y.o. F w/ PMHx. of DM2, GERD(noted to have gastric ulcer in EGD September), RLE DVT(on Eliquis), and Metastatic Pancreatic CA(Ddx. 1 month ago, s/p 2 rounds of FOLFIRINOX- last on ). #Metastatic Pancreatic CA Avoid the use of oxycodone for treatment of pain. Pt. is s/p 2 rounds of FOLFORINOX Given oxycodone and marinol for pain management and appetite stimulant, would hold both, would consider Pain management consult, caution with NSAIDS and Eliquis use head CT negative for acute pathology Neurochecks #Normocytic Anemia f/u FOBT x3 or until positive result Pt. may require a colonoscopy obtain medical records recommend GI consult for evaluation of bleeding. Iron studies indicate low iron stores and contributing factor in anemia, likely in part due to ongoing chemotherapy and evidence of hepatic dysfunction as MCV is borderline elevated with multiple Metastases to liver. #Hx. of DVT? Peroneal vein does not qualify as a deep vein, however as Pt. has significant ongoing malignancy, Dr. Fried elected to start Pt. on reduced dose Eliquis. Eliquis with continue monitoring of H/H superficial DVT in the setting of Pancreatic CA is not unusual (Trousseau's sign for malignancy) Dispo: We will continue to follow the patient. Thank you for this consultative opportunity. Visit type - Medication Review Med list reviewed for High Risk Meds patients 65 and older: Yes - Emergency Visit Emergency Visit: Yes ED Registration Date: 11/22/19 Care time: The patient presented to the Emergency Department on the above date and was hospitalized for further evaluation of their emergent condition. - New Patient This patient is new to me today: Yes Date on this admission: 11/22/19 - Critical Care Critical Care patient: No ATTENDING PHYSICIAN STATEMENT I saw and evaluated the patient. I reviewed the resident's note and discussed the case with the resident. I agree with the resident's findings and plan as documented. SUBJECTIVE: OBJECTIVE: ASSESSMENT AND PLAN:
--- NOTE | 2019-11-22 15:43 | CONSULT ---
Consult Consult Specialty:: Palliative care Referred by:: Stacy Blank Reason for Consultation:: Goals of care, symptom management - History of Present Illness Chief Complaint: pancreatic cancer, confusion History of Present Illness: Pt is a 74 year old female with a PMHx of pancreatic cancer diagnosed in September (2 rounds of chemo done), R leg DVT on Eliquis, and DM. Daughter completing most of history as patient is lethargic. Pt completed 2 rounds of chemo and on oxycodone and marinol on Thursday and noticed pt became very lethargic. The next day, oxycodone was taken without marinol and there were no symptoms. On Thursday, pt to ok oxycodone again and once again became lethargic that continued into Thursday. Denies any LOC, trauma. Daughter then brought pt to the ER for ongoing symptoms. Trops in ED 2.33 and 2.15. EKG without any ischemic changes. Pt had leg pain last week and oncologist did LE US which showed DVT, being tr eated with Eliquis. Denies fever and chills, chest pain, SOB, palpitations, leg edema, pain, iss ues. Admits to epigastric abdominal pain and lethargy and weakness. Palliative care consult called for goals of care and symptom management. + hyponatremia hypoalbuminemia - History Source History Provided By: Patient, Family Member Limitations to Obtaining History: No Limitations - Past Medical History Gastrointestinal: Yes: Cancer Heme/Onc: Yes: Current Chemotherapy Endocrine: Yes: Diabetes Mellitus - Smoking History Smoking history: Never smoked - Social History Usual Living Arrangement: With Child ADL: Family Assistance Home Medications - Allergies Allergies/Adverse Reactions: Allergies Allergy/AdvReac Type Severity Reaction Status Date / Time codeine Allergy Verified 11/21/19 21:56 - Home Medications Home Medications: Ambulatory Orders Apixaban [Eliquis] 2.5 mg PO BID 11/22/19 Metformin HCl [Glucophage] 500 mg PO DAILY 11/22/19 Pantoprazole Sodium [Protonix] 40 mg PO DAILY 11/22/19 Family Medical History Family History: Unable to Obtain Review of Systems - Review of Systems Constitutional: reports: Loss of Appetite, Weakness Gastrointestinal: reports: Constipation, Nausea Neurological: reports: Confusion Physical Exam Vital Signs: Vital Signs Temperature 98.4 F 11/22/19 06:30 Pulse Rate 92 H 11/22/19 11:00 Respiratory Rate 16 11/22/19 11:00 Blood Pressure 160/85 11/22/19 11:00 O2 Sat by Pulse Oximetry (%) 100 11/22/19 11:00 Constitutional: Yes: Mild Distress, Thin Eyes: Yes: Conjunctiva Clear, EOM Intact HENT: Yes: Atraumatic, Normocephalic Neck: Yes: Supple Cardiovascular: Yes: Regular Rate and Rhythm Respiratory: Yes: Regular, CTA Bilaterally Gastrointestinal: Yes: Normal Bowel Sounds, Soft Neurological: Yes: Alert, Oriented, Lethargy Labs: CBC, BMP 11/22/19 05:53 11/22/19 05:53 Imaging - Results Cat Scan: Report Reviewed Ultrasound: Report Reviewed Problem List - Problems (1) Pancreatic cancer Code(s): C25.9 - MALIGNANT NEOPLASM OF PANCREAS, UNSPECIFIED (2) AMS (altered mental status) Code(s): R41.82 - ALTERED MENTAL STATUS, UNSPECIFIED Qualifiers: Altered mental status type: disorientation Qualified Code(s): R41.0 - Disorientation, unspecified Assessment/Plan Pt is a 74 year old female with a PMHx of pancreatic cancer diagnosed in September (2 rounds of chemo done), R leg DVT on Eliquis, and DM. Daughter completing most of history as patient is lethargic. Pt completed 2 rounds of chemo and on oxycodone and marinol on Thursday and noticed pt became very lethargic. The next day, oxycodone was taken without marinol and there were no symptoms. On Thursday, pt took oxycodone again and once again became lethargic that continued into Thursday. Denies any LOC, trauma. Daughter then brought pt to the ER for ongoing symptoms. Trops in ED 2.33 and 2.15. EKG without any ischemic changes. Pt had leg pain last week and oncologist did LE US which showed DVT, being treated with Eliquis. Denies fever and chills, chest pain, SOB, palpitations, leg edema, pain, issues. Admits to epigastric abdominal pain and lethargy and weakness. Palliative care consult called for goals of care and symptom management. + hyponatremia hypoalbuminemia CTH neg for pathology USG abdo c/w pancreatic mass and liver mets prognosis guarded on chemotherapy currently had detailed discussion with pt and her daughter who was at bedside. At this point symptom management would be a priority to ease pt's discomfort while she is receiving chemotherapy. She is on marinol 2.5 mg po bid which will help with anorexia and nausea. We discussed minimzing the use of percocet - possible half tablet and use ES tylenol also for mild to moderate pain Pt does not want codeine as it causes severe nausea and she is able to tolerate oxycodone better. She was advised to use senna for constipation if taking oxycodone. I also advised patient and her daughter the importance of optimizing nutrition and hydration during this time using boost/ ensure etc Pt is able to ambulate with RW and is living with her daughter currently who is able to provide assistance with ADLs as needed. We discussed advanced directives. Patient was primarily residing in [place] before where she lives alone. She has a living will and HCP in [place]. She did indicate to me that she wished to be DNR/ DNI. However pt's daughter intervened and requested some more time to think as pt is currently a little confused and forgetful. I did advice them to obtain the living will so it is part of her medical records here. Thanku for allowing me to participate in the care of this patient. Please call with questions. Mikhail Bravo MD [phone] Total time for chart review, examination, conference and coordination of care- 70 minutes.
--- NOTE | 2019-11-22 17:41 | CON.NEURO ---
Consult Consult Specialty:: [facility] Referred by:: ER Reason for Consultation:: AMS - History of Present Illness History of Present Illness: 74 years old woman history of DM, HTN, pancreatic cancer and hTN on pain killer patient with no fall no dizziness and feels confused No fall no seziure no recent seizure Head Ct with no acute path - History Source History Provided By: Patient Limitations to Obtaining History: Clinical Condition - Past Medical History Musculoskeletal: Yes: Chronic low back pain - Smoking History Smoking history: Never smoked Home Medications - Allergies Allergies/Adverse Reactions: Allergies Allergy/AdvReac Type Severity Reaction Status Date / Time codeine Allergy Verified 11/21/19 21:56 - Home Medications Home Medications: Ambulatory Orders Apixaban [Eliquis] 2.5 mg PO BID 11/22/19 Dronabinol 2.5 mg PO BID 11/22/19 Metformin HCl [Glucophage] 500 mg PO DAILY 11/22/19 Pantoprazole Sodium [Protonix] 40 mg PO DAILY 11/22/19 Review of Systems - Review of Systems Constitutional: reports: No Symptoms Eyes: reports: No Symptoms HENT: reports: No Symptoms Neurological: reports: Change in LOC, Change in Speech Physical Exam-Neuro Vital Signs: Vital Signs Temperature 97.8 F 11/22/19 16:30 Pulse Rate 90 11/22/19 16:30 Respiratory Rate 16 11/22/19 16:30 Blood Pressure 128/77 11/22/19 16:30 O2 Sat by Pulse Oximetry (%) 99 11/22/19 16:30 Labs: CBC, BMP 11/22/19 05:53 11/22/19 05:53 INR, PTT INR 1.34 (0.83-1.09) H 11/21/19 21:40 - Neuro Exam Level Of Consciousness: Yes: Oriented to Person, Oriented to Place Eyes: Yes: PERRLA Speech: WNL Dominant Hand: Right Cranial Nerves II-XII Intact: No Gag: Present DTR's: 0 Left Bicep, 0 Right Bicep, 0 Left Tricep, 0 Right Tricep Response to light touch: Normal Response to pain prick: Normal Response to temperature: Normal Response to vibration: Normal Motor Strength: 3/5: Left Arm, Right Arm, Left Leg, Right Leg Gait: Deferred Imaging - Results Cat Scan: Image Reviewed Problem List - Problems (1) AMS (altered mental status) Assessment/Plan: i doubt this is a TIA Questionable resolving toxic metabolic encephalopathy with medication-induced 1. Neuro check 2. Avoid Opiate s 3. Fall precautions 4. MRI brain no Chace Thank you Erika Evans MD Code(s): R41.82 - ALTERED MENTAL STATUS, UNSPECIFIED Qualifiers: Altered mental status type: disorientation Qualified Code(s): R41.0 - Disorientation, unspecified
--- NOTE | 2019-11-22 18:01 | PN ---
Teaching Attending Note Name of Resident: Rhoda Mckay ATTENDING PHYSICIAN STATEMENT I saw and evaluated the patient. I reviewed the resident's note and discussed the case with the resident. I agree with the resident's findings and plan as documented. SUBJECTIVE: seen around 10 am No fever or chills. no pain , no dysuria , no frequency. she feels back to normal. she has no N/V . per her daughter she had oxy a couple days ago, and became confused . she has been taking marinol as well. she has poor po intake due to her cancer. now after holding oxy and hydrating patient she feels her mom is back to her base line patient denies any CP . she has no palpitations . leg swelling OBJECTIVE: NAD, awake, alert, knows location , age, and why she is here. moist MM. no facial droop, pale conjunctivae and MM CV: RRR, no MRG Lungs: CTAB Abd: soft, TTP in epigastric area with a hard tissue mass in that area. no suprapubic tenderness . RUQ surgical scar seen Ext: No edema and erythema in upper or lower ext . Neuro: EOMI, round pupils, no facial droop, tongue at mid line , strength 5/5 in upper and lower extremities proximally and distally. reflexes 1+ knee jerk b/l, 2+ biceps b/l. ASSESSMENT AND PLAN: Unfortunate 74 y/o lady with h/o pancreatic cancer on active chemo ( diagnosed 1 month ago) , recent DVT ( R peroneal vein thrombosis 11/16/19) , possible GI bleed , who presented with AMS. 1- AMS, toxic metabolic encephalopathy due to volume depletion, narcotics, and marinol use. - now back to her base line - neuro exam normal - avoid narcotic and volume depletion - neuro recommended MRI, will d/w them, if MRI is not urgent as patietn is back to her base line , can be done as out pt 2- Recent h/o peroneal vein thrombosis, ( distal DVT ) . - appreciate dr Meza d/w her oncologist. due to malignancy, treatment with low dose eliquis was started. - Noted the low dose in setting of possible GI bleed after chemo. 3- Asymptomatic pyuria. No need for Abx 4- Macrocytic anemia. iron studies are lacking Ferritin but TIBC is low, which does not suggest iron def. B12, folate noted. 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 d/w carey Medrano a primary ACS . possible 5-florouracil causing elevation - ck Mb added on. if low , will do no further testing 6- Transaminitis: due to pancreatic cancer. US noted. cont out pt f/u and chemo depending on CkMb level and d/w neuro about MRI, will decide on dc . PT eval noted
[2019-11-22] MEDS ORDERED: ACETAMINOPHEN INJECTION 100 ML IVPB ONE (18:13)
--- NOTE | 2019-11-22 20:39 | DS ---
Physical Exam: SUBJECTIVE: No overnight events. Patient seen and examined. Daughter endorsed that pt's mental status had returned to baseline. OBJECTIVE: Vital Signs Period Temp Pulse Resp BP Sys/Zepeda Pulse Ox Last 24 Hr 97.8 F-98.9 F 90-100 16-18 128-160/76-85 99-100 PHYSICAL EXAM GENERAL: The patient is awake, alert, and fully oriented to person and place. no acute distress. HEENT: NT, NC, MMM, no facial droop LUNGS: Breath sounds equal, clear to auscultation bilaterally, no wheezes, no crackles, no accessory muscle use. HEART: Regular rate and rhythm, S1, S2 without murmur, rub or gallop. ABDOMEN: Soft, nondistended, normoactive bowel sounds, no guarding, no rebound. epigastric region TTP EXTREMITIES: 2+ pulses, warm, well-perfused, no edema. strength 5/5, sensation intact. knee reflex 1+ NEUROLOGICAL: Cranial nerves II through XII grossly intact. Normal speech, gait not observed. PSYCH: Normal mood, normal affect. SKIN: Warm, dry, normal turgor, no rashes or lesions noted. LABS Laboratory Results - last 24 hr 11/21/19 11/21/19 11/21/19 21:40 21:40 21:40 WBC 7.7 RBC 2.48 L Hgb 8.1 L Hct 24.0 L MCV 96.7 H MCH 32.7 MCHC 33.8 RDW 15.9 H Plt Count 257 MPV 8.2 Absolute Neuts (auto) 3.9 Neutrophils % 50.3 Lymphocytes % 32.6 Monocytes % 14.1 H Eosinophils % 2.4 Basophils % 0.6 Nucleated RBC % 0 Retic Count PT with INR 15.80 H INR 1.34 H PTT (Actin FS) 24.2 L Sodium 132 L Potassium 4.0 Chloride 96 L Carbon Dioxide 28 Anion Gap 8 BUN 9.1 Creatinine 0.5 L Est GFR (CKD-EPI)AfAm 112.07 Est GFR (CKD-EPI)NonAf 96.69 POC Glucometer Random Glucose 95 Calcium 9.1 Phosphorus Magnesium Iron TIBC Iron Saturation Unsaturated IBC Total Bilirubin 0.6 AST 75 H ALT 39 Alkaline Phosphatase 362 H Creatine Kinase 127 CK-MB (CK-2) Troponin I 2.23 H* Total Protein 6.9 Albumin 3.1 L Vitamin B12 Serum Folate Urine Color Urine Appearance Urine pH Ur Specific [place] Urine Protein Urine Glucose (UA) Urine Ketones Urine Blood Urine Nitrite Urine Bilirubin Urine Urobilinogen Ur Leukocyte Esterase Urine WBC (Auto) Urine RBC (Auto) Urine Casts (Auto) U Epithel Cells (Auto) Urine Bacteria (Auto) Blood Type Antibody Screen 11/21/19 11/22/19 11/22/19 21:44 01:07 01:07 WBC RBC Hgb Hct MCV MCH MCHC RDW Plt Count MPV Absolute Neuts (auto) Neutrophils % Lymphocytes % Monocytes % Eosinophils % Basophils % Nucleated RBC % Retic Count PT with INR INR PTT (Actin FS) Sodium Potassium Chloride Carbon Dioxide Anion Gap BUN Creatinine Est GFR (CKD-EPI)AfAm Est GFR (CKD-EPI)NonAf POC Glucometer Random Glucose Calcium Phosphorus Magnesium Iron TIBC Iron Saturation Unsaturated IBC Total Bilirubin AST ALT Alkaline Phosphatase Creatine Kinase 116 CK-MB (CK-2) Troponin I 2.15 H* Total Protein Albumin Vitamin B12 Serum Folate Urine Color Yellow Urine Appearance Clear Urine pH 5.5 Ur Specific [place] 1.020 Urine Protein 1+ H Urine Glucose (UA) Negative Urine Ketones Trace H Urine Blood Trace Urine Nitrite Negative Urine Bilirubin Negative Urine Urobilinogen 1.0 Ur Leukocyte Esterase Trace Urine WBC (Auto) 25 Urine RBC (Auto) 18 Urine Casts (Auto) 7 U Epithel Cells (Auto) 29 Urine Bacteria (Auto) 97 Blood Type A POSITIVE Antibody Screen Negative 11/22/19 11/22/19 11/22/19 05:53 05:53 05:53 WBC 6.6 RBC 2.26 L Hgb 7.4 L Hct 21.8 L MCV 96.7 H MCH 32.6 MCHC 33.7 RDW 15.8 H Plt Count 213 MPV 8.2 Absolute Neuts (auto) 3.3 Neutrophils % 50.8 Lymphocytes % 29.8 Monocytes % 16.7 H Eosinophils % 2.3 Basophils % 0.4 Nucleated RBC % 0 Retic Count 1.99 H PT with INR INR PTT (Actin FS) Sodium 137 Potassium 3.8 Chloride 102 Carbon Dioxide 26 Anion Gap 9 BUN 7.8 Creatinine 0.5 L Est GFR (CKD-EPI)AfAm 112.07 Est GFR (CKD-EPI)NonAf 96.69 POC Glucometer Random Glucose 87 Calcium 8.3 L Phosphorus 2.8 Magnesium 2.3 Iron 32 L TIBC 185 L Iron Saturation 17 L Unsaturated IBC 153 L Total Bilirubin 0.6 AST 64 H ALT 34 Alkaline Phosphatase 320 H Creatine Kinase CK-MB (CK-2) Troponin I 1.80 H* Total Protein 6.1 L Albumin 2.6 L Vitamin B12 2415 H Serum Folate 33 H Urine Color Urine Appearance Urine pH Ur Specific [place] Urine Protein Urine Glucose (UA) Urine Ketones Urine Blood Urine Nitrite Urine Bilirubin Urine Urobilinogen Ur Leukocyte Esterase Urine WBC (Auto) Urine RBC (Auto) Urine Casts (Auto) U Epithel Cells (Auto) Urine Bacteria (Auto) Blood Type Antibody Screen 11/22/19 11/22/19 11/22/19 07:20 10:55 16:21 WBC RBC Hgb Hct MCV MCH MCHC RDW Plt Count MPV Absolute Neuts (auto) Neutrophils % Lymphocytes % Monocytes % Eosinophils % Basophils % Nucleated RBC % Retic Count PT with INR INR PTT (Actin FS) Sodium Potassium Chloride Carbon Dioxide Anion Gap BUN Creatinine Est GFR (CKD-EPI)AfAm Est GFR (CKD-EPI)NonAf POC Glucometer 80 105 83 Random Glucose Calcium Phosphorus Magnesium Iron TIBC Iron Saturation Unsaturated IBC Total Bilirubin AST ALT Alkaline Phosphatase Creatine Kinase CK-MB (CK-2) Troponin I Total Protein Albumin Vitamin B12 Serum Folate Urine Color Urine Appearance Urine pH Ur Specific [place] Urine Protein Urine Glucose (UA) Urine Ketones Urine Blood Urine Nitrite Urine Bilirubin Urine Urobilinogen Ur Leukocyte Esterase Urine WBC (Auto) Urine RBC (Auto) Urine Casts (Auto) U Epithel Cells (Auto) Urine Bacteria (Auto) Blood Type Antibody Screen 11/22/19 18:44 WBC RBC Hgb Hct MCV MCH MCHC RDW Plt Count MPV Absolute Neuts (auto) Neutrophils % Lymphocytes % Monocytes % Eosinophils % Basophils % Nucleated RBC % Retic Count PT with INR INR PTT (Actin FS) Sodium Potassium Chloride Carbon Dioxide Anion Gap BUN Creatinine Est GFR (CKD-EPI)AfAm Est GFR (CKD-EPI)NonAf POC Glucometer Random Glucose Calcium Phosphorus Magnesium Iron TIBC Iron Saturation Unsaturated IBC Total Bilirubin AST ALT Alkaline Phosphatase Creatine Kinase 99 CK-MB (CK-2) 1.2 Troponin I Total Protein Albumin Vitamin B12 Serum Folate Urine Color Urine Appearance Urine pH Ur Specific [place] Urine Protein Urine Glucose (UA) Urine Ketones Urine Blood Urine Nitrite Urine Bilirubin Urine Urobilinogen Ur Leukocyte Esterase Urine WBC (Auto) Urine RBC (Auto) Urine Casts (Auto) U Epithel Cells (Auto) Urine Bacteria (Auto) Blood Type Antibody Screen HOSPITAL COURSE: Pt is 74 YO F PMH DM, R LE DVT on eliqiuis (R peroneal vein thrombosis 11/16/19) and pancreatic cancer on FOLFARINOX chemo, p/w AMS. Pt used oxycodone and marinol at home and became very lethargic. The following days, oxycodone was given without marinol, but she continued to be lethargic. The patient returned to her baseline mental status in the hospital after receiving fluids and holding all opioids for the pt. A neurologist evaluated the patient. Pt was instructed to follow up neurology outpatient for MRI and EEG. Pt had transaminitis. Ultrasound showed marked dilatation of biliary tree; heterogeneous liver with multiple ill-defined masses strongly suspicious for metastatic disease; solid mass in head of pancreas. Hyponatremia was managed with NS. Eliquis was continued for DVT. Labs revealed pt to have elevated troponin, but EKGs showed normal sinus rhythm and the patient did not have chest pain. The fluorouracil in the pts FOLFARINOX has been shown to have cardiac effects, which could lead to elevated troponins. However, the pts repeat troponins have trended down from 2.23 to 1.80. Her Creatine kinase was 99 and CK-MB was 1.2. Echocardiogram showed EF 60, impaired LV relaxation & trace mitral/tricuspid/pulmonic regurgitation. Pt's symptoms improved. Pt is stable for discharge. Date of Admission:11/22/19 Ultrasound: marked dilatation of biliary tree; heterogeneous liver with multiple ill-defined masses strongly suspicious for metastatic disease; solid mass in head of pancreas. Echo: EF 60, impaired LV relaxation & trace mitral/tricuspid/pulmonic regurgitation. Date of Discharge: 11/22/19 Minutes to complete discharge: 55 Discharge Summary Problems reviewed: Yes Reason For Visit: ALTERED MENTAL STATUS Current Active Problems Elevated troponin (Acute) Pancreatic cancer (Chronic) Condition: Improved - Instructions Diet, Activity, Other Instructions: You came into the hospital for confusion and sleepiness. You were observed in the hospital, given fluids, and you are now improved. Please do NOT take oxycodone. Please do not take Marinol. Please continue your additional home medications as prescribed. Please follow up with the board of directors, Dr. Russell, regarding your heart. you may need further testing to evaluate your heart. Please follow up with your Oncologist, Dr. Fried for further management of your chemotherapy and leg clot Please follow up with the Neurologist, Dr. Evans, on Thursday at 2pm to further manage your mental status. You may need an MRI and EEG. Please follow up with your primary care physician to further manage your healthcare. You will need repeat complete blood count and complete metabolic profile If you have new, worsening, or concerning symptoms please return to the ED or call 911. IF your symptoms return or you developed slurred speech, confusion, dizziness, weakness please return to the ED. Referrals: Elmer Russell MD [Staff Physician] - 1 Week Erika Evans MD [Staff Physician] - 11/25/19 2:00 pm Disposition: HOME - Home Medications Comprehensive Discharge Medication List: Ambulatory Orders Apixaban [Eliquis] 2.5 mg PO BID 11/22/19 Metformin HCl [Glucophage] 500 mg PO DAILY 11/22/19 Pantoprazole Sodium [Protonix] 40 mg PO DAILY 11/22/19 This patient is new to me today: No Emergency Visit: Yes ED Registration Date: 11/22/19 Care time: The patient presented to the Emergency Department on the above date and was hospitalized for further evaluation of their emergent condition. Critical Care patient: No - Discharge Referral Referred to [facility] No ATTENDING PHYSICIAN STATEMENT I saw and evaluated the patient. I reviewed the resident's note and discussed the case with the resident. I agree with the resident's findings and plan as documented. SUBJECTIVE: OBJECTIVE: ASSESSMENT AND PLAN:
--- NOTE | 2019-11-23 04:52 | CON.CARD ---
Consult Consult Specialty:: cardiology Reason for Consultation:: AMS; elevated TNI - History of Present Illness Chief Complaint: Pt now alert, oriented. No chest pain or dyspnea; says she never wants to take an opiate again. History of Present Illness: Ms. Martin is a 74 year old black woman with a PMH of pancreatitic CA diagnosed several weeks ago (s/p 2 rounds of chemo), recent DVT (on eliquis), HTN, anemia, who presents to the ED with intermittent AMS. Per daughter the pt has been having periods of confusion since yesterday, after taking Percocet, which continued today. Per daughter, the patient took Percocet on Thursday (11/17), and was "out of it all day," then took it again Thursday (11/18) and was fine. Daughter states that yesterday, (11/19), she took another Percocet and was altered again, prompting her arrival to the ED today. Since this time she has had a decreased appetite and fatigue. On Thursday she began taking marinol and oxycodone and since then has been confused, weak, tired, and "not herself". She additionally adds that approximately 2 weeks ago she was diagnosed with a DVT in her right leg and has since been taking eloquis. She denies CP, SOB, cough, N/V/D, fever, chills, changes in bowel or urinary habits, or recent falls/ trauma. Cardiovascular: No Chest Pain, No SOB, No PND, No Dyspnea on Exertion, No Orthopnea, No Claudication, No Edema, No Palpitations Pt denies personal or family hx CAD. Allergies: NKDA Oncologist: Dr. Henriquez - [facility] - History Source History Provided By: Patient, Medical Record Limitations to Obtaining History: No Limitations - Past Medical History Gastrointestinal: Yes: Cancer Reproductive: Yes: Postmenopausal ...: No Heme/Onc: Yes: Anemia Psych: Yes: Anxiety Musculoskeletal: Yes: Chronic low back pain Endocrine: Yes: Diabetes Mellitus - Smoking History Smoking history: Never smoked - Social History Usual Living Arrangement: With Child ADL: Family Assistance Home Medications - Allergies Allergies/Adverse Reactions: Allergies Allergy/AdvReac Type Severity Reaction Status Date / Time codeine Allergy Verified 11/21/19 21:56 - Home Medications Home Medications: Ambulatory Orders Apixaban [Eliquis] 2.5 mg PO BID 11/22/19 Metformin HCl [Glucophage] 500 mg PO DAILY 11/22/19 Pantoprazole Sodium [Protonix] 40 mg PO DAILY 11/22/19 Family Medical History Family History: Denies Review of Systems - Review of Systems Constitutional: reports: Weakness Eyes: reports: No Symptoms HENT: reports: No Symptoms Neck: reports: No Symptoms Cardiovascular: reports: No Symptoms Respiratory: reports: Exercise Intolerance Gastrointestinal: reports: Abdominal Pain Genitourinary: reports: No Symptoms Breasts: reports: No Symptoms Reported Musculoskeletal: reports: Muscle Weakness Neurological: reports: No Symptoms Endocrine: reports: No Symptoms Hematology/Lymphatic: reports: No Symptoms Psychiatric: reports: Anxiety - Risk Factors Known Risk Factors: Yes: Age, Hypertension, Race, Other Vital Signs: Vital Signs Temperature 98.4 F 11/23/19 01:18 Pulse Rate 86 11/23/19 01:18 Respiratory Rate 20 11/23/19 01:18 Blood Pressure 141/92 11/23/19 01:18 O2 Sat by Pulse Oximetry (%) 99 11/22/19 22:00 Constitutional: Yes: Anxious, Thin Eyes: Yes: WNL HENT: Yes: WNL Neck: Yes: WNL Respiratory: Yes: Regular Gastrointestinal: Yes: Soft Renal/: Yes: Anuria Cardiovascular: Yes: Tachycardia JVD: No Carotid Bruit: No PMI: Non-Displaced Heart Sounds: Yes: S1, S2 Murmur: Yes: Systolic Murmur, Grade 1 Musculoskeletal: Yes: Muscle Weakness Extremities: Yes: Cool Edema: No Peripheral Pulses WNL: Yes Integumentary: Yes: WNL Neurological: Yes: Alert, Oriented, Weakness Psychiatric: Yes: Alert, Oriented - Other Data Labs, Other Data: CBC, BMP 11/22/19 05:53 11/22/19 05:53 INR, PTT INR 1.34 (0.83-1.09) H 11/21/19 21:40 Troponin, BNP 11/22/19 05:53 Troponin I 1.80 H* Troponin, BNP 11/22/19 05:53 Troponin I 1.80 H* Abnormal Lab Results 11/22/19 11/22/19 11/22/19 05:53 05:53 05:53 RBC 2.26 L Hgb 7.4 L Hct 21.8 L MCV 96.7 H RDW 15.8 H Monocytes % 16.7 H Retic Count 1.99 H Creatinine 0.5 L Calcium 8.3 L Iron 32 L TIBC 185 L Iron Saturation 17 L Unsaturated IBC 153 L AST 64 H Alkaline Phosphatase 320 H Troponin I 1.80 H* Total Protein 6.1 L Albumin 2.6 L Vitamin B12 2415 H Serum Folate 33 H Echo: Report Reviewed Imaging - Results Chest X-ray: Image Reviewed (no acute pathology) EKG: Image Reviewed (NSR; HR in 90s bpm) Assessment/Plan Altered mental status (likely secondary to Percocet) Pancreatic CA; s/p chemotherapy s/p recent DVT-->apixaban HTN anemia elevated TNI (2.23-->2.15-->1.80); CK WNL elevated LFTs hypoalbuminemia diastolic LV dysfunction COVID pending Plan: TSH BNP lipid profile r/o ischemic cause of elevated TNI; pt has no prior cardiac hx. EKG without acute ST-T changes. Systemic illness/anemia, DVT, chemotherapy, CHF, tachycardia, may contribute to TNI elevation. On apixaban Serial BP and HR; consider metoprolol.
[2019-11-23] MEDS: SODIUM CHLORIDE 1,000 ML IV SCH (05:48)
[2019-11-23] MEDS: INSULIN SLIDING SCALE (NOVOLOG) 1 VIAL SQ SCH (06:33)
[2019-11-23] MEDS: APIXABAN 5 MG TABLET PO SCH (09:03)
[2019-11-23 09:47] VITALS: BP 137/93; PULSE 94; TEMP 98.3
[2019-11-23 09:53] LABS: EPI CELLS 4 /uL (0-25.1); HYALINE CASTS 1 /uL (0-3.1); PH,URINE 7.5 (5.0-8.0); URINE APPEARANCE CLEAR; URINE BACTERIA 3 /uL (0-1359); URINE BILIRUBIN NEGATIVE (NEGATIVE); URINE COLOR YELLOW; URINE GLUCOSE (UA) NEGATIVE (NEGATIVE); URINE KETONE NEGATIVE (NEGATIVE); URINE LEUK ESTERASE NEGATIVE (NEGATIVE); URINE NITRITE NEGATIVE (NEGATIVE); URINE PROTEIN NEGATIVE (NEGATIVE); URINE RBC 13 /uL (0-23.9); URINE WBC 2 /uL (0-25.8)
--- NOTE | 2019-11-23 10:55 | PN ---
Progress Note, Physician History of Present Illness: Ms. Martin is a 74 year old black woman with a PMH of pancreatitic CA diagnosed several weeks ago (s/p 2 rounds of chemo), recent DVT (on eliquis), HTN, anemia, who presents to the ED with intermittent AMS. Per daughter the pt has been having periods of confusion since yesterday, after taking Percocet, which continued today. Per daughter, the patient took Percocet on Thursday (11/17), and was "out of it all day," then took it again Thursday (11/18) and was fine. Daughter states that yesterday, (11/19), she took another Percocet and was altered again, prompting her arrival to the ED today. Since this time she has had a decreased appetite and fatigue. On Thursday she began taking marinol and oxycodone and since then has been confused, weak, tired, and "not herself". She additionally adds that approximately 2 weeks ago she was diagnosed with a DVT in her right leg and has since been taking eloquis. She denies CP, SOB, cough, N/V/D, fever, chills, changes in bowel or urinary habits, or recent falls/ trauma. Cardiovascular: No Chest Pain, No SOB, No PND, No Dyspnea on Exertion, No Orthopnea, No Claudication, No Edema, No Palpitations - Objective Vital Signs: Vital Signs Temperature 98.3 F 11/23/19 09:00 Pulse Rate 94 H 11/23/19 09:00 Respiratory Rate 18 11/23/19 09:00 Blood Pressure 137/93 11/23/19 09:00 O2 Sat by Pulse Oximetry (%) 98 11/23/19 09:00 Eyes: Yes: WNL, Conjunctiva Clear, EOM Intact HENT: Yes: WNL, Atraumatic, Normocephalic Neck: Yes: WNL, Supple, Trachea Midline Cardiovascular: Yes: WNL, Regular Rate and Rhythm Respiratory: Yes: WNL, Regular, CTA Bilaterally Gastrointestinal: Yes: WNL, Normal Bowel Sounds Genitourinary: Yes: WNL Musculoskeletal: Yes: WNL Extremities: Yes: WNL Edema: No Integumentary: Yes: WNL Neurological: Yes: WNL, Alert, Oriented ...Motor Strength: WNL Psychiatric: Yes: WNL Labs: CBC, BMP 11/22/19 05:53 11/22/19 05:53 INR, PTT INR 1.34 (0.83-1.09) H 11/21/19 21:40 Assessment/Plan Altered mental status (likely secondary to Percocet) Pancreatic CA; s/p chemotherapy s/p recent DVT-->apixaban HTN anemia elevated TNI (2.23-->2.15-->1.80); CK WNL elevated LFTs hypoalbuminemia diastolic LV dysfunction COVID pending Plan: TSH BNP lipid profile r/o ischemic cause of elevated TNI; pt has no prior cardiac hx. EKG without acute ST-T changes. Systemic illness/anemia, DVT, chemotherapy, CHF, tachycardia, may contribute to TNI elevation. On apixaban Serial BP and HR; consider metoprolol. Ischemioc w/u e.g stress test prior to discharge.
[2019-11-23 12:50] LABS: N-TERMINAL BNP 374.4 pg/ml (5-125)
--- NOTE | 2019-11-23 17:55 | PN ---
Teaching Attending Note Name of Resident: Ayush Richard ATTENDING PHYSICIAN STATEMENT I saw and evaluated the patient. I reviewed the resident's note and discussed the case with the resident. I agree with the resident's findings and plan as documented. SUBJECTIVE: seen early in am before she left . she was discharged last night and did not leave as it was too ate no new comlaints today except fro a slight ALEJANDRO OBJECTIVE: NAD, AAOx3. CV: RRR, no MRG Lungs: CTAB Abd: soft, TTP in epigastric area with a hard tissue mass in that area. no suprapubic tenderness . RUQ surgical scar seen Ext: No edema and erythema in upper or lower ext . Neuro: EOMI, round pupils, no facial droop, tongue at mid line , strength 5/5 in upper and lower extremities proximally and distally. ASSESSMENT AND PLAN: Unfortunate 74 y/o lady with h/o pancreatic cancer on active chemo ( diagnosed 1 month ago) , recent DVT ( R peroneal vein thrombosis 11/16/19) , possible GI bleed , who presented with AMS. 1- AMS, toxic metabolic encephalopathy due to volume depletion, narcotics, and marinol use. resolved now back to base line -f/u wit neuro for MRI and EEG . 2- Recent h/o peroneal vein thrombosis, ( distal DVT ) . -cont home eliquis 3- Asymptomatic pyuria. No need for Abx 4- Macrocytic anemia - f/u with her anaesthesiologist 5- Elevation in trop: as per dw Dr. Aguilar yesterday, and due to low Ckmb/CK she was recommended to follow with him in office in 1 week. this am , stress test was recommended few min before she physically left,without communication from animal husbandry worker. will have her f/u as planned 6- Transaminitis: due to pancreatic cancer.
== END 2019-11-23 10:05 | disposition home or self-care (01) | DRG 92 ==
LOC: JER 19:45 → JERBED 11-22 01:58 → J4S 11-22 21:48
PROVIDERS: ADMIT Internal Medicine; ATTEND Internal Medicine
DX: G92 Toxic encephalopathy (principal); C25.9 Malignant neoplasm of pancreas, unspecified; E87.1 Hypo-osmolality and hyponatremia; T40.2X5A Adverse effect of other opioids, initial encounter; Z86.718 Personal history of other venous thrombosis and embolism; Z79.01 Long term (current) use of anticoagulants; E88.09 Other disorders of plasma-protein metabolism, not elsewhere classified; D63.0 Anemia in neoplastic disease; E11.9 Type 2 diabetes mellitus without complications; R74.0 Nonspecific elevation of levels of transaminase and lactic acid dehydrogenase [LDH]; K21.9 Gastro-esophageal reflux disease without esophagitis; E86.9 Volume depletion, unspecified; R82.81 Pyuria; Z79.84 Long term (current) use of oral hypoglycemic drugs
CPT/HCPCS: 36415; 70450-TC; 71046-TC-FY; 76705-TC; 80053; 80061; 81003; 82550; 82553; 82607; 82746; 82962; 83540; 83550; 83721; 83735; 83880; 84100; 84443; 84484; 85025; 85044; 85610; 85730; 86850; 86900; 86901; 87086; 93005; 93010; 93306-TC; 97116-GP; 97161-GP; 99285-25; J0131; U0003

== ENCOUNTER 2019-11-24 10:59 | Observation (INO) | payer OTHER ==
[2019-11-24 11:24] VITALS: BMI 23.3
--- NOTE | 2019-11-24 11:28 | PDOC ---
History of Present Illness - General Chief Complaint: Altered Mental Status Stated Complaint: AMS Time Seen by Provider: 11/24/19 11:28 - History of Present Illness Initial Comments: 11/24/19 13:05 74 F with hx of DVT, pancreatic CA on eliquis and active chemo BIBA from home after mental status change in the shower. According to the daughter Rubia ), she noticed she took the shower a bit too long. She opened the door, found her to be off. She was holding onto the rail, didn't talk, didn't walk. She was worried and walked her down, gave her some fluid and electrolytes. She called the ambulance. Patient is not on any opiod for a week. She just got discharged from [facility] yesterday. Patient initially denies headache, fall, LOC. Howeve, as she is interviewed. Patient didn't know what happened in the shower. She later on admitted to headache for 2 days, took tylenol with a bit relief. She endorsed dizziness in the shower and admitted not eating or drinking for this morning. She denies chest pain, SOB. F/N/V/D, extremitiy swelling, unilat left leg pain, but does have residual right leg calve pain due to previous DVT. Her last eliquis was yesterday night. PMH: DVT, Pancreatic cancer on active chemo PSH: abdominal surgery Med: eliquis, chemo SS: neg for smoking, drug, alcohol Allergy: coidein, dronabinol, oxycodone. ROS GENERAL/CONSTITUTIONAL: No fever or chills. No weakness. HEAD, EYES, EARS, NOSE AND THROAT: No change in vision. No ear pain or discharge. No sore throat. CARDIOVASCULAR: No chest pain or shortness of breath RESPIRATORY: No cough, wheezing, or hemoptysis. GASTROINTESTINAL: No nausea, vomiting, diarrhea or constipation. GENITOURINARY: No dysuria, frequency, or change in urination. MUSCULOSKELETAL: No joint or muscle swelling or pain. No neck or back pain. SKIN: No rash NEUROLOGIC: headache, vertigo, no loss of consciousness, or change in str ength/sensation. ENDOCRINE: No increased thirst. No abnormal weight change HEMATOLOGIC/LYMPHATIC: No anemia, easy bleeding, or history of blood clots. ALLERGIC/IMMUNOLOGIC: No hives or skin allergy. PE GENERAL: Awake, alert, and fully oriented, in no acute distress HEAD: No signs of trauma, normocephalic, atraumatic. no neck tenderness. EYES: PERRLA, EOMI, sclera anicteric, conjunctiva clear ENT: Auricles normal inspection, hearing grossly normal, nares patent, oropharynx clear without exudates. Moist mucosa NECK: Normal ROM, supple, no lymphadenopathy, JVD, or masses LUNGS: No distress, speaks full sentences, clear to auscultation bilaterally , no rales. HEART: Regular rate and rhythm, normal S1 and S2, no murmurs, rubs or gallops, peripheral pulses normal and equal bilaterally. ABDOMEN: Soft, nontender, normoactive bowel sounds. No guarding, no rebound. No masses, abnorminal scar. EXTREMITIES : Normal inspection, Normal range of motion, no edema. No clubbing or cyanosis. NEUROLOGICAL: Cranial nerves II through XII grossly intact. Normal speech, n ormal gait, no focal sensorimotor deficits SKIN: Warm, Dry, normal turgor, no rashes or lesions noted Past History - Medical History Allergies/Adverse Reactions: Allergies Allergy/AdvReac Type Severity Reaction Status Date / Time codeine Allergy Verified 11/21/19 21:56 dronabinol [From Marinol] Allergy Verified 11/24/19 11:02 oxycodone Allergy Verified 11/24/19 11:02 Home Medications: Ambulatory Orders Apixaban [Eliquis] 2.5 mg PO BID 11/22/19 Metformin HCl [Glucophage] 500 mg PO DAILY 11/22/19 Pantoprazole Sodium [Protonix] 40 mg PO DAILY 11/22/19 Cancer: Yes (pancreatic) COPD: No Diabetes: Yes - Immunization History Immunization Up to Date: Yes - Psycho-Social/Smoking History Smoking History: Never smoked - Substance Abuse Hx (Audit-C & DAST Scrn) How often the patient has a drink containing alcohol: Never Score: In Men: 4 or > Positive; In Women: 3 or > Positive: 0 Screen Result (Pos requires Nsg. Audit-10AR): Negative In the last yr the pt used illegal drug/Rx for NonMed reason: No Score: Yes response is considered Positive: 0 Screen Result (Positive result requires Nsg. DAST-10): Negative *Physical Exam - Vital Signs Last Vital Signs Temp Pulse Resp BP Pulse Ox 98.0 F 108 H 20 136/74 100 11/24/19 11:22 11/24/19 11:22 11/24/19 11:22 11/24/19 11:22 11/24/19 11:22 ED Treatment Course - LABORATORY CBC & Chemistry Diagram: 11/24/19 13:10 11/24/19 13:10 Medical Decision Making - Medical Decision Making 11/24/19 13:00 Ms. Martin 74 with hx of DVT, pancreatic cancer BIBA after mental status change in the shower. Collateral was taken from the daughter. ddx: brain bleed, metastasis met, chemo induced, DVT, PE, vagovagal syncope, dehydration. EKG: vent rate 115, sinus tachycardia. regular rate, rhythm Plan: Lab: CBC, CMP, trop, coag Med: 500ml Fluid. Imaging: CT head, cervical noncontrast. 11/24/19 14:22 Imaging : CT head and neck are normal. Chest Xray is also normal 11/24/19 15:00 Troponin 2.96 Will give ASPIRIN . Admit for tele observation. 11/24/19 17:47 22.4 Troponin at repeated 4 hr lab. 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 Discharge - Discharge Information Problems reviewed: Yes Clinical Impression/Diagnosis: Elevated troponin Pancreatic cancer Qualifiers: Pancreatic malignancy location: unspecified Qualified Code(s): C25.9 - Malignant neoplasm of pancreas, unspecified Condition: Good - Admission Yes - Follow up/Referral - Patient Discharge Instructions - Post Discharge Activity
[2019-11-24] MEDS ORDERED: SODIUM CHLORIDE 0.9% 500 ML INFUS.BAG IV ONE (12:11)
[2019-11-24 14:03] LABS: HEMATOCRIT 26.3 % (32.4-45.2); HEMOGLOBIN 8.9 GM/dL (10.7-15.3); MCH 33.3 pg (25.7-33.7); MCHC 33.8 g/dl (32.0-36.0); MEAN CELL VOLUME 98.5 fl (80-96); PLATELET COUNT 274 K/MM3 (134-434); RBC 2.67 M/mm3 (3.60-5.2); RDW 17.5 % (11.6-15.6); WHITE BLOOD COUNT 7.9 K/mm3 (4.0-10.0)
[2019-11-24 14:11] LABS: INR 1.44 (0.83-1.09); PROTHROMBIN TIME (PATIENT) 17.1 SEC (9.7-13.0)
[2019-11-24 14:14] LABS: ACTIVATED PTT 23.5 SECONDS (25.2-36.5)
[2019-11-24] MEDS ORDERED: ACETAMINOPHEN 1000 MG/100 ML VIAL (NON FORMULARY) IVPB ONE (14:37)
[2019-11-24] MEDS ORDERED: ACETAMINOPHEN 325 MG TABLET (FP) PO ONE (14:39)
[2019-11-24 14:41] LABS: ALBUMIN 3.1 g/dl (3.4-5.0); BILIRUBIN,TOTAL 0.8 mg/dL (0.2-1); BLOOD UREA NITROGEN 8.6 mg/dL (7-18); CALCIUM 9.2 mg/dL (8.5-10.1); CREATININE 0.6 mg/dL (0.55-1.3); POTASSIUM 3.7 mmol/L (3.5-5.1); TOT PROT 7.3 g/dl (6.4-8.2)
[2019-11-24] MEDS ORDERED: ACETAMINOPHEN 325 MG TABLET (FP) ONE (14:47)
--- NOTE | 2019-11-24 14:51 | EKG ---
Test Reason : Blood Pressure : / mmHG Vent. Rate : 115 BPM Atrial Rate : 115 BPM P-R Int : 132 ms QRS Dur : 082 ms QT Int : 336 ms P-R-T Axes : 065 062 019 degrees QTc Int : 464 ms SINUS TACHYCARDIA OTHERWISE NORMAL ECG WHEN COMPARED WITH ECG OF 22-NOV-2019 20:25, ST ELEVATION NOW PRESENT IN ANTERIOR LEADS INVERTED T WAVES HAVE REPLACED NONSPECIFIC T WAVE ABNORMALITY IN INFERIOR LEADS Confirmed by FLORENCIA AGARWAL, TOBY ([id number]) on 11/24/2019 2:51:09 PM Referred By: Confirmed By:TOBY DON MD
--- NOTE | 2019-11-24 15:37 | PDOC ---
Documentation entered by Jessy Monteiro SCRIBE, acting as scribe for Pedro Luis Melo MD. Pedro Luis Melo MD: This documentation has been prepared by the Thania desir Xhesika, SCRIBE, under my direction and personally reviewed by me in its entirety. I confirm that the documentation accurately reflects all work, treatment, procedures, and medical decision making performed by me. Attending Attestation - Resident Resident Name: RacielEzequiel - ED Attending Attestation I have performed the following: I have examined & evaluated the patient, The case was reviewed & discussed with the resident, I agree w/resident's findings & plan, Exceptions are as noted - HPI HPI: 11/24/19 11:37 The patient is a 74 year old F with a PMH of pancreatitic CA (2 rounds of chemo), recent DVT on eliquis who presents to the ED BIBA s/p fall 10AM. Pt states she used the restroom, went into the shower and fell while in the shower. Pt is unsure of LOC or head struck but states she did not lose consciousness. Pt was found down by her daughter. Now patient with no complaints denies fever chills chest pain shortness of breath nausea vomiting diarrhea per daughter is back to baseline mental status except maybe a little more tired than usual Allergies: NKDA Oncologist: Dr. Fried - [facility] - Physicial Exam PE: 11/24/19 15:39 Vitals: Triage Vital signs reviewed General Appearance: No acute distress Head: Atraumatic, Cardiac: Regular rate and rhythym Lungs: Clear to auscultation bilateral, good air movement bilaterally, Abdomen: Soft, non distended, normal bowel sounds, non tender to palpation Extremities: Full range of motion to all extremities, no cyanosis, clubbing, or edema Skin: Warm and dry, no rashes or lesions, no rash, no petechiae Neuro: Strength intact to all extremities, sensation intact to all extremities Psych: Normal mood, normal affect - Medical Decision Making 11/24/19 15:37 The patient is a 74 year old F with a PMH of pancreatitic CA (2 rounds of chemo), recent DVT on eliquis who presents to the ED BIBA s/p fall 10AM. Pt states she used the restroom, went into the shower and fell while in the shower. Pt is unsure of LOC or head struck but states she did not lose consciousness. Pt was found down by her daughter. EKG performed at 1238 demonstrates normal sinus rhythm 1mm ST elevations anteriorly no T wave inversions Interpreted by me. 11/24/19 15:38 Last seen normal this morning 9 AM not a TPA candidate given cancer and on Eliquis Brief episode of altered mental status now back to baseline per daughter most likely brief syncopal episode Currently nonfocal neurologic examination NIHSS SCORE 0 Again with elevated troponin, similar to last admission. Full dose aspirin given no active chest pain. Will observe overnight for telemetry observation for syncope/troponinemia cardiology consultation Discharge - Discharge Information Problems reviewed: Yes Clinical Impression/Diagnosis: Elevated troponin Pancreatic cancer Qualifiers: Pancreatic malignancy location: unspecified Qualified Code(s): C25.9 - Malignant neoplasm of pancreas, unspecified Condition: Good Disposition: TRANSFER ACUTE CARE/OTHER HOSP - Follow up/Referral - Patient Discharge Instructions - Post Discharge Activity
--- NOTE | 2019-11-24 16:03 | PN ---
Teaching Attending Note Name of Resident: Jessy Newton ATTENDING PHYSICIAN STATEMENT I saw and evaluated the patient. I reviewed the resident's note and discussed the case with the resident. I agree with the resident's findings and plan as documented. SUBJECTIVE: 74 F with known history of DVT on eliquis, pancreatic CA currently on chemo who was brought to the ED after daughter noticed she was acting unlike herself. Apparently patient was noted to have showered too long. Daughter went in to check on her and noticed that she was holding on to the wall and appearing dazed. She was just discharged from this hospital yesterday. OBJECTIVE: Gen: appeared frail, not in acute distress HEENT: EOMI neck supple chest diminished breath sounds CVS: Tachycardic abd tender to the touch, positive hepatomegaly, hypoactive bowel sounds ext no edema hand i thermal cutter able to focus, move extremities (5/5), follows commands, limited participation secondary to illness ASSESSMENT AND PLAN: 1. ? near syncope/change in mentation - Ddx; infectious process, metabolic, cardiac - troponin more elevated than previous admission - student assistance counselor will be called to see her - aspirin - troponins serially - telemetry monitoring - orthostatics 2. DVT - cont AC with eliquis 3. Pancreatic cancer - currently undergoing chemo - narcotics for cancer associated pain 4. DVT prophylaxis - AC (#2)
--- NOTE | 2019-11-24 16:23 | HP ---
CHIEF COMPLAINT: presyncope PCP: Arnoldo Caba HISTORY OF PRESENT ILLNESS: 74F w/ pmhx of DVT, pancreatic cancer presents in the ED after a presyncopal episode. Daughter present at bedside and states that she found her mother standing in bathroom against towel rail after taking a hot shower, weak and unable to respond appropriately. Daughter then walked her to a chair and provided PO fluids. Pt only admitted to headache during the episode. Denied dizziness, vision changes, chest pain, sob, n/v, fall or head traum. Of note, she was hospitalized 11/21-11/22 for similar symptoms found to have elevated trops and evaluated by cardio at the time with recommendation to obtain stress test. Allergies codeine Allergy (Verified 11/21/19 21:56) dronabinol [From Marinol] Allergy (Verified 11/24/19 11:02) oxycodone Allergy (Verified 11/24/19 11:02) HOME MEDICATIONS: Home Medications Medication Instructions Recorded Apixaban [Eliquis] 2.5 mg PO BID 11/22/19 Metformin HCl [Glucophage] 500 mg PO DAILY 11/22/19 Pantoprazole Sodium [Protonix] 40 mg PO DAILY 11/22/19 REVIEW OF SYSTEMS As per HPI PHYSICAL EXAMINATION Vital Signs - 24 hr 11/24/19 11/24/19 11:22 15:41 Temperature 98.0 F 98.5 F Pulse Rate 108 H Pulse Rate [ 117 H Right Radial] Respiratory 20 18 Rate Blood Pressure 136/74 Blood Pressure 148/91 [Left Arm] O2 Sat by Pulse 100 99 Oximetry (%) GENERAL: frail-appearing -[place]ian female. NAD. AAOx3. HEENT: AT/NC. NECK: Normal range of motion, supple without lymphadenopathy, JVD, or masses. LUNGS: CTA b/l. no wheezes/rales. HEART: RRR, normal S1, S2. no murmurs. CHEST: Chemo port in place in R upper chest, dressing c/d/i. ABDOMEN: soft, NT/ND. well-healed surgical scar extending diagonally across RUQ. MUSCULOSKELETAL: Moves all extremities. EXTREMITIES: No peripheral edema noted. 5/5 muscle strength in u/l b/l extremities. 2+ DP pulses. NEUROLOGICAL: Cranial nerves II-XII intact. Normal speech. SKIN: Warm, dry, normal turgor, no rashes or lesions noted, normal capillary refill. Laboratory Results - last 24 hr 11/24/19 11/24/19 11/24/19 11:27 13:10 13:10 WBC 7.9 RBC 2.67 L Hgb 8.9 L Hct 26.3 L D MCV 98.5 H MCH 33.3 MCHC 33.8 RDW 17.5 H Plt Count 274 D MPV 8.0 PT with INR 17.10 H INR 1.44 H PTT (Actin FS) 23.5 L Sodium Potassium Chloride Carbon Dioxide Anion Gap BUN Creatinine Est GFR (CKD-EPI)AfAm Est GFR (CKD-EPI)NonAf POC Glucometer 128 Random Glucose Calcium Total Bilirubin AST ALT Alkaline Phosphatase Creatine Kinase Troponin I Total Protein Albumin 11/24/19 13:10 WBC RBC Hgb Hct MCV MCH MCHC RDW Plt Count MPV PT with INR INR PTT (Actin FS) Sodium 136 Potassium 3.7 Chloride 98 Carbon Dioxide 28 Anion Gap 10 BUN 8.6 Creatinine 0.6 Est GFR (CKD-EPI)AfAm 105.54 Est GFR (CKD-EPI)NonAf 91.06 POC Glucometer Random Glucose 122 H Calcium 9.2 Total Bilirubin 0.8 AST 76 H ALT 42 Alkaline Phosphatase 400 H Creatine Kinase 144 Troponin I 2.96 H* Total Protein 7.3 Albumin 3.1 L ASSESSMENT/PLAN: 74F w/ pmhx of DVT, pancreatic cancer presents in the ED after a presyncopal episode. Presyncope STEMI Hx of DVT Pancreatic Ca w/ mets Pt repeat trop found to be elevated at ~22 from 2.96. EKG showed LIZZ V2, V3 with TWI in inferior leads. Cardio contacted. Transfer for cardiac cath to [facility] today, accepting physician Dr. Oakes. Pt and pt's daughter verbalized understanding and in agreement with plan for transfer. Will give ASA, Plavix, statinn, BB, heparin drip. ED made aware, transfer paperwork signed. Visit type - Medication Review Med list reviewed for High Risk Meds patients 65 and older: Yes - Emergency Visit Emergency Visit: Yes ED Registration Date: 11/24/19 Care time: The patient presented to the Emergency Department on the above date and was hospitalized for further evaluation of their emergent condition. - New Patient This patient is new to me today: Yes Date on this admission: 11/24/19 - Critical Care Critical Care patient: No ATTENDING PHYSICIAN STATEMENT I saw and evaluated the patient. I reviewed the resident's note and discussed the case with the resident. I agree with the resident's findings and plan as documented. SUBJECTIVE: OBJECTIVE: ASSESSMENT AND PLAN:
[2019-11-24 16:42] LABS: EPI CELLS 22 /uL (0-25.1); HYALINE CASTS 19 /uL (0-3.1); PH,URINE 6.5 (5.0-8.0); URINE APPEARANCE CLEAR; URINE BACTERIA 32 /uL (0-1359); URINE BILIRUBIN NEGATIVE (NEGATIVE); URINE COLOR YELLOW; URINE GLUCOSE (UA) NEGATIVE (NEGATIVE); URINE KETONE 2+ (NEGATIVE); URINE LEUK ESTERASE NEGATIVE (NEGATIVE); URINE NITRITE NEGATIVE (NEGATIVE); URINE PROTEIN 1+ (NEGATIVE); URINE RBC 36 /uL (0-23.9); URINE WBC 14 /uL (0-25.8)
[2019-11-24] MEDS ORDERED: PANTOPRAZOLE 40 MG TABLET PO SCH (17:15)
[2019-11-24] MEDS ORDERED: ASPIRIN 81 MG CHEWABLE TABLETS PO ONE (17:57)
[2019-11-24] MEDS ORDERED: METOPROLOL TARTRATE 25 MG TABLET (FP) PO ONE (18:04)
[2019-11-24] MEDS ORDERED: CLOPIDOGREL BISULFATE 300 MG TABLET PO ONE (18:10)
[2019-11-24] MEDS ORDERED: METOPROLOL TARTRATE 25 MG TABLET (FP) ONE (18:15)
[2019-11-24] MEDS ORDERED: ASPIRIN 81 MG CHEWABLE TABLETS ONE (18:15)
[2019-11-24] MEDS ORDERED: PANTOPRAZOLE 40 MG TABLET ONE (18:16)
[2019-11-24] MEDS ORDERED: CLOPIDOGREL BISULFATE 300 MG TABLET ONE (18:16)
[2019-11-24 18:19] VITALS: BP 150/83; PULSE 106
[2019-11-24] MEDS ORDERED: HEPARIN NA (PORCINE) 5,000 UNITS/ML 1ML VIAL IVPUSH PRN ×2 (18:21)
[2019-11-24] MEDS ORDERED: HEPARIN - 25,000 UNIT in SODIUM CHLORIDE 495 ML IV SCH (18:30)
[2019-11-24] MEDS ORDERED: HEPARIN NA (PORCINE) 5,000 UNITS/ML 1ML VIAL ONE (18:44)
[2019-11-24] MEDS ORDERED: HEPARIN INFUSION - 25,000 UNITS/500 ML INFUS.BAG IVPB ONE (18:44)
--- NOTE | 2019-11-24 18:54 | HP ---
CHIEF COMPLAINT: AMS PCP: HISTORY OF PRESENT ILLNESS: 74 YO F PMH DM, R LE DVT on Eliquis (R peroneal vein thrombosis 11/16/19) and pancreatic cancer on FOLFARINOX chemo presents s/p AMS. The pt was in the shower, and she had taken a long time, so the daughter checked in on her. The pt was found to be standing, holding onto the railing. She was awake, but did not respond to her daughters voice. The daughter took her out of the shower and sat her down. While sitting on the chair, pt was diaphoretic and her arm was shaking, but non-rigid. Daughter became worried and called EMS at 9:30. Pts mental status slowly improved. The daughter gave her an electrolyte solution. When EMS arrived 30 minutes later, the patients BP was 97/60 and her glucose was 158. Upon arrival to the ED, pts daughter endorsed the mothers mental status had approached baseline. Of note, pt has not been eating well at home. Daughter reports the pt only drinks 40 oz of fluid daily despite encouragement. Pt was unable to recall how she felt before becoming altered. Pt endorsed pressure-like headache in band distribution around the forehead for the past 2 days that improved with Tylenol. Pt was recently in [facility] on 11/20 for AMS 2/2 oxycodone and Marinol use. However, pt denied oxycodone/marinol use. Troponinemia resolved with IV fluids during last admission. ER course was notable for: (1) ST elevations in anterior leads (2) Trop 2.96, 22.40 (3) Hgb/Hct: 8.9/26.3 Recent Travel: denies PAST MEDICAL HISTORY: DM, R LE DVT on Eliquis (R peroneal vein thrombosis 11/16/19) and pancreatic cancer on FOLFARINOX chemo PAST SURGICAL HISTORY: Cholecystectomy Hysterecomy Social History: Smoking: Denies Alcohol: Socially Drugs: Denies Allergies codeine Allergy (Verified 11/21/19 21:56) dronabinol [From Marinol] Allergy (Verified 11/24/19 11:02) oxycodone Allergy (Verified 11/24/19 11:02) HOME MEDICATIONS: Home Medications Medication Instructions Recorded Apixaban [Eliquis] 2.5 mg PO BID 11/22/19 Metformin HCl [Glucophage] 500 mg PO DAILY 11/22/19 Pantoprazole Sodium [Protonix] 40 mg PO DAILY 11/22/19 REVIEW OF SYSTEMS CONSTITUTIONAL: Absent: fever, chills, diaphoresis, generalized weakness, malaise, loss of appetite, weight change HEENT: headache Absent: rhinorrhea, nasal congestion, throat pain, throat swelling, difficulty swallowing, mouth swelling, ear pain, eye pain, visual changes CARDIOVASCULAR: Absent: chest pain, syncope, palpitations, irregular heart rate, lightheadedness, peripheral edema RESPIRATORY: Absent: cough, shortness of breath, dyspnea with exertion, orthopnea, wheezing, stridor, hemoptysis GASTROINTESTINAL: Absent: abdominal pain, abdominal distension, nausea, vomiting, diarrhea, constipation, melena, hematochezia GENITOURINARY: Absent: dysuria, frequency, urgency, hesitancy, hematuria, flank pain, genital pain MUSCULOSKELETAL: Absent: myalgia, arthralgia, joint swelling, back pain, neck pain SKIN: Absent: rash, itching, pallor HEMATOLOGIC/IMMUNOLOGIC: Absent: easy bleeding, easy bruising, lymphadenopathy, frequent infections ENDOCRINE: Absent: unexplained weight gain, unexplained weight loss, heat intolerance, cold intolerance NEUROLOGIC: Absent: headache, focal weakness or paresthesias, dizziness, unsteady gait, seizure, mental status changes, bladder or bowel incontinence PSYCHIATRIC: Absent: anxiety, depression, suicidal or homicidal ideation, hallucinations. PHYSICAL EXAMINATION Vital Signs - 24 hr 11/24/19 11/24/19 11/24/19 11:22 15:41 18:18 Temperature 98.0 F 98.5 F 99.0 F Pulse Rate 108 H Pulse Rate [ 117 H 106 H Right Radial] Respiratory 20 18 16 Rate Blood Pressure 136/74 Blood Pressure 148/91 150/83 [Left Arm] O2 Sat by Pulse 100 99 99 Oximetry (%) GENERAL: Awake, alert, and fully oriented, in no acute distress. HEAD: Normal with no signs of trauma. EYES: Pupils equal, round and reactive to light, extraocular movements intact, No lid lag. EARS, NOSE, THROAT: Ears normal, nares patent, oropharynx clear without exudates. Moist mucous membranes. LUNGS: Breath sounds equal, clear to auscultation bilaterally. No wheezes, and no crackles. No accessory muscle use. HEART: Regular rate and rhythm, normal S1 and S2 without murmur, rub or gallop. ABDOMEN: Soft, nontender, not distended, normoactive bowel sounds, no guarding, no rebound, no masses. UPPER EXTREMITIES: 2+ pulses, warm, well-perfused. No cyanosis. No clubbing. No peripheral edema. LOWER EXTREMITIES: 2+ pulses, warm, well-perfused. No calf tenderness. No peripheral edema. NEUROLOGICAL: Cranial nerves II-XII intact. Normal speech. PSYCHIATRIC: Cooperative. Good eye contact. Appropriate mood and affect. SKIN: Warm, dry, normal turgor, no rashes or lesions noted, normal capillary refill. Laboratory Results - last 24 hr 11/24/19 11/24/19 11/24/19 11:27 13:10 13:10 WBC 7.9 RBC 2.67 L Hgb 8.9 L Hct 26.3 L D MCV 98.5 H MCH 33.3 MCHC 33.8 RDW 17.5 H Plt Count 274 D MPV 8.0 PT with INR 17.10 H INR 1.44 H PTT (Actin FS) 23.5 L Sodium Potassium Chloride Carbon Dioxide Anion Gap BUN Creatinine Est GFR (CKD-EPI)AfAm Est GFR (CKD-EPI)NonAf POC Glucometer 128 Random Glucose Calcium Total Bilirubin AST ALT Alkaline Phosphatase Creatine Kinase Troponin I Total Protein Albumin Urine Color Urine Appearance Urine pH Ur Specific [place] Urine Protein Urine Glucose (UA) Urine Ketones Urine Blood Urine Nitrite Urine Bilirubin Urine Urobilinogen Ur Leukocyte Esterase Urine WBC (Auto) Urine RBC (Auto) Urine Casts (Auto) U Epithel Cells (Auto) Urine Bacteria (Auto) 11/24/19 11/24/19 11/24/19 13:10 16:20 17:00 WBC RBC Hgb Hct MCV MCH MCHC RDW Plt Count MPV PT with INR INR PTT (Actin FS) Sodium 136 Potassium 3.7 Chloride 98 Carbon Dioxide 28 Anion Gap 10 BUN 8.6 Creatinine 0.6 Est GFR (CKD-EPI)AfAm 105.54 Est GFR (CKD-EPI)NonAf 91.06 POC Glucometer Random Glucose 122 H Calcium 9.2 Total Bilirubin 0.8 AST 76 H ALT 42 Alkaline Phosphatase 400 H Creatine Kinase 144 Troponin I 2.96 H* 22.40 H* Total Protein 7.3 Albumin 3.1 L Urine Color Yellow Urine Appearance Clear Urine pH 6.5 Ur Specific [place] 1.014 Urine Protein 1+ H Urine Glucose (UA) Negative Urine Ketones 2+ H Urine Blood Trace Urine Nitrite Negative Urine Bilirubin Negative Urine Urobilinogen 2.0 H Ur Leukocyte Esterase Negative Urine WBC (Auto) 14 Urine RBC (Auto) 36 Urine Casts (Auto) 19 U Epithel Cells (Auto) 22 Urine Bacteria (Auto) 32 ASSESSMENT/PLAN: #STEMI -ST elevation in V2, V3, V4, trop 22.4 -s/p heparin 35697 units in 495 ml -transferred to [facility] for cardiac cath. Accepted by Dr. Oakes. #AMS -orthostatic vitals were negative for orthostatic hypotension #DVT eliquis Visit type - Medication Review Med list reviewed for High Risk Meds patients 65 and older: Yes - Emergency Visit Emergency Visit: No - New Patient This patient is new to me today: No - Critical Care Critical Care patient: No ATTENDING PHYSICIAN STATEMENT I saw and evaluated the patient. I reviewed the resident's note and discussed the case with the resident. I agree with the resident's findings and plan as documented. SUBJECTIVE: OBJECTIVE: ASSESSMENT AND PLAN:
[2019-11-24 19:58] VITALS: TEMP 98.5
--- NOTE | 2019-11-24 21:31 | DS ---
Physical Exam: SUBJECTIVE: Patient seen and examined. c/o of headache and feeling tired. OBJECTIVE: Vital Signs Period Temp Pulse Resp BP Sys/Zepeda Pulse Ox Last 24 Hr 98.0 F-99.0 F 106-117 16-20 136-150/74-91 99-100 PHYSICAL EXAM GENERAL: The patient is awake, alert, and fully oriented, in no acute distress. thin-appearing HEAD: Normal with no signs of trauma. EYES: PERRL, extraocular movements intact, sclera anicteric, conjunctiva clear. ENT: Ears normal, nares patent, oropharynx clear without exudates, moist mucous membranes. LUNGS: Breath sounds equal, clear to auscultation bilaterally, no wheezes, no crackles, no accessory muscle use. HEART: Regular rate and rhythm, S1, S2 without murmur, rub or gallop. ABDOMEN: Soft, nontender, nondistended, normoactive bowel sounds, no guarding, no rebound CHEST: chemoport in R upper chest EXTREMITIES: 2+ pulses, warm, well-perfused, no edema. 5/5 strength in all 4 extremities. sensation intact in all 4 extremities. NEUROLOGICAL: Cranial nerves II through XII grossly intact. Normal speech, gait not observed. PSYCH: Normal mood, normal affect. SKIN: Warm, dry, normal turgor, no rashes or lesions noted. LABS Laboratory Results - last 24 hr 11/24/19 11/24/19 11/24/19 11:27 13:10 13:10 WBC 7.9 RBC 2.67 L Hgb 8.9 L Hct 26.3 L D MCV 98.5 H MCH 33.3 MCHC 33.8 RDW 17.5 H Plt Count 274 D MPV 8.0 PT with INR 17.10 H INR 1.44 H PTT (Actin FS) 23.5 L Sodium Potassium Chloride Carbon Dioxide Anion Gap BUN Creatinine Est GFR (CKD-EPI)AfAm Est GFR (CKD-EPI)NonAf POC Glucometer 128 Random Glucose Calcium Total Bilirubin AST ALT Alkaline Phosphatase Creatine Kinase Troponin I Total Protein Albumin Urine Color Urine Appearance Urine pH Ur Specific [place] Urine Protein Urine Glucose (UA) Urine Ketones Urine Blood Urine Nitrite Urine Bilirubin Urine Urobilinogen Ur Leukocyte Esterase Urine WBC (Auto) Urine RBC (Auto) Urine Casts (Auto) U Epithel Cells (Auto) Urine Bacteria (Auto) 11/24/19 11/24/19 11/24/19 13:10 16:20 17:00 WBC RBC Hgb Hct MCV MCH MCHC RDW Plt Count MPV PT with INR INR PTT (Actin FS) Sodium 136 Potassium 3.7 Chloride 98 Carbon Dioxide 28 Anion Gap 10 BUN 8.6 Creatinine 0.6 Est GFR (CKD-EPI)AfAm 105.54 Est GFR (CKD-EPI)NonAf 91.06 POC Glucometer Random Glucose 122 H Calcium 9.2 Total Bilirubin 0.8 AST 76 H ALT 42 Alkaline Phosphatase 400 H Creatine Kinase 144 Troponin I 2.96 H* 22.40 H* Total Protein 7.3 Albumin 3.1 L Urine Color Yellow Urine Appearance Clear Urine pH 6.5 Ur Specific [place] 1.014 Urine Protein 1+ H Urine Glucose (UA) Negative Urine Ketones 2+ H Urine Blood Trace Urine Nitrite Negative Urine Bilirubin Negative Urine Urobilinogen 2.0 H Ur Leukocyte Esterase Negative Urine WBC (Auto) 14 Urine RBC (Auto) 36 Urine Casts (Auto) 19 U Epithel Cells (Auto) 22 Urine Bacteria (Auto) 32 HOSPITAL COURSE: 74 YO F PMH DM, R LE DVT on Eliquis (R peroneal vein thrombosis 11/16/19) and pancreatic cancer on FOLFARINOX chemo presents s/p AMS. Pt was unresponsive to daughters voice. When EMS arrived, BP was 97/60 and her glucose was 158. EKG revealed ST elevation V1-V3, with reciprocal changes in II, III, and aVF. Tro ponins were 2.96, 22.40. Hgb/Hct: 8.9/26.3. Pt was given heparin, ASA, clopidogrel, beta-hank, atorvastatin. Transfer to Transfer to [facility] for cardiac cath. Accepting physician: Dr. Oakes. Date of Admission:11/24/19 Date of Discharge: 11/24/19 Minutes to complete discharge: 41 Discharge Summary Problems reviewed: Yes Reason For Visit: MALIGNANT NEOPLASM OF PANCREAS ELEVATED TROPONIN Current Active Problems Elevated troponin (Acute) Pancreatic cancer (Chronic) Condition: Good - Instructions Referrals: ON STAFF,NOT [Primary Care Provider] - Disposition: TRANSFER ACUTE CARE/OTHER HOSP - Home Medications Comprehensive Discharge Medication List: Ambulatory Orders Apixaban [Eliquis] 2.5 mg PO BID 11/22/19 Metformin HCl [Glucophage] 500 mg PO DAILY 11/22/19 Pantoprazole Sodium [Protonix] 40 mg PO DAILY 11/22/19 This patient is new to me today: No Emergency Visit: Yes ED Registration Date: 11/24/19 Care time: The patient presented to the Emergency Department on the above date and was hospitalized for further evaluation of their emergent condition. Critical Care patient: No - Discharge Referral Referred to [facility] No ATTENDING PHYSICIAN STATEMENT I saw and evaluated the patient. I reviewed the resident's note and discussed the case with the resident. I agree with the resident's findings and plan as documented. SUBJECTIVE: OBJECTIVE: ASSESSMENT AND PLAN:
[2019-11-24] MEDS ORDERED: APIXABAN 2.5 MG TABLET PO SCH (22:00)
--- NOTE | 2019-11-24 22:54 | CON.CARD ---
Consult Consult Specialty:: Cardiology Reason for Consultation:: pre-syncope; elevated TNI - History of Present Illness Chief Complaint: Pt initially weak, confused History of Present Illness: Ms. Martin is a 74 year old woman with a PMH of recently-diagnosed pancreatic CA with ?liver mets (s/p 2 rounds of chemo), recent DVT (on eliquis), anemia, discharged 11/22/19 from [facility] after admission for change of mental status thought due to Percoset, who presents to the ED BIBA s/p fall 10AM. Pt states she used the restroom, went into the shower and fell while in the shower. Pt is unsure of LOC or head struck but states she did not lose consciousness. Pt was found slumped against shower wall by her daughter. Allergies: NKDA Oncologist: Dr. Fried - [facility] - History Source History Provided By: Medical Record - Past Medical History Gastrointestinal: Yes: Cancer Reproductive: Yes: Postmenopausal ...: No Heme/Onc: Yes: Anemia Psych: Yes: Anxiety Musculoskeletal: Yes: Chronic low back pain Endocrine: Yes: Diabetes Mellitus - Past Surgical History Additional Surgical History: abdominal scar: surgical procedure unclear - Smoking History Smoking history: Never smoked - Social History Usual Living Arrangement: With Child ADL: Family Assistance Home Medications - Allergies Allergies/Adverse Reactions: Allergies Allergy/AdvReac Type Severity Reaction Status Date / Time codeine Allergy Verified 11/21/19 21:56 dronabinol [From Marinol] Allergy Verified 11/24/19 11:02 oxycodone Allergy Verified 11/24/19 11:02 - Home Medications Home Medications: Ambulatory Orders Apixaban [Eliquis] 2.5 mg PO BID 11/22/19 Metformin HCl [Glucophage] 500 mg PO DAILY 11/22/19 Pantoprazole Sodium [Protonix] 40 mg PO DAILY 11/22/19 Family Medical History Family History: Denies Review of Systems - Review of Systems Constitutional: reports: Weakness, Other (diaphoresis) Eyes: reports: No Symptoms HENT: reports: No Symptoms Neck: reports: No Symptoms Cardiovascular: reports: No Symptoms Respiratory: reports: No Symptoms Gastrointestinal: reports: Bloating Genitourinary: reports: No Symptoms Breasts: reports: No Symptoms Reported Musculoskeletal: reports: Muscle Weakness Integumentary: reports: No Symptoms Neurological: reports: Weakness Hematology/Lymphatic: reports: Other - Risk Factors Known Risk Factors: Yes: Age Vital Signs: Vital Signs Temperature 98.5 F 11/24/19 19:56 Pulse Rate 106 H 11/24/19 19:56 Respiratory Rate 19 11/24/19 19:56 Blood Pressure 150/83 11/24/19 19:56 O2 Sat by Pulse Oximetry (%) 99 11/24/19 18:18 - Other Data Labs, Other Data: CBC, BMP 11/24/19 13:10 11/24/19 13:10 INR, PTT INR 1.44 (0.83-1.09) H 11/24/19 13:10 Troponin, BNP 11/24/19 11/24/19 13:10 17:00 Troponin I 2.96 H* 22.40 H* Troponin, BNP 11/24/19 11/24/19 13:10 17:00 Troponin I 2.96 H* 22.40 H* Imaging - Results EKG: Image Reviewed (NSR; ST elevation V1-V3, with reciprocal changes in II, III, and aVF) Other: Report Reviewed (TNI 0.2-->0.18 on admission 11/21/19; now 2.9-->22.4 over the past 4 hours (13:00-->17:00).) Assessment/Plan STEMI pre-syncope Pancreatic CA with ?liver mets anemia IV heparin; ASA; atorvastatin; clopidogrel. IVF Transfer to [facility] for coronary angiogram.
--- NOTE | 2019-11-25 11:16 | EKG ---
Test Reason : Blood Pressure : / mmHG Vent. Rate : 103 BPM Atrial Rate : 103 BPM P-R Int : 136 ms QRS Dur : 076 ms QT Int : 340 ms P-R-T Axes : 077 039 048 degrees QTc Int : 445 ms SINUS TACHYCARDIA POSSIBLE LEFT ATRIAL ENLARGEMENT SEPTAL INFARCT , AGE UNDETERMINED ABNORMAL ECG WHEN COMPARED WITH ECG OF 24-NOV-2019 12:38, SEPTAL INFARCT IS NOW PRESENT ST NO LONGER ELEVATED IN ANTERIOR LEADS NONSPECIFIC T WAVE ABNORMALITY HAS REPLACED INVERTED T WAVES IN INFERIOR LEADS T WAVE INVERSION NOW EVIDENT IN ANTERIOR LEADS Confirmed by GUZMAN ECHAVARRIA MD ([id number]) on 11/25/2019 11:15:51 AM Referred By: Confirmed By:GUZMAN ECHAVARRIA MD
--- NOTE | 2019-11-25 11:18 | EKG ---
Test Reason : Blood Pressure : / mmHG Vent. Rate : 092 BPM Atrial Rate : 092 BPM P-R Int : 144 ms QRS Dur : 072 ms QT Int : 354 ms P-R-T Axes : 080 052 049 degrees QTc Int : 437 ms POOR DATA QUALITY, INTERPRETATION MAY BE ADVERSELY AFFECTED NORMAL SINUS RHYTHM NORMAL ECG WHEN COMPARED WITH ECG OF 22-NOV-2019 09:02, NO SIGNIFICANT CHANGE WAS FOUND Confirmed by GUZMAN ECHAVARRIA MD ([id number]) on 11/25/2019 11:17:50 AM Referred By: Confirmed By:GUZMAN ECHAVARRIA MD
== END 2019-11-24 19:24 | disposition short-term general hospital (02) ==
LOC: JER 10:59 → INTOOBSV 16:00 → JERBED 16:00 → UNDOADMOB 16:00 → JERBED 16:01
PROVIDERS: ADMIT Internal Medicine; ATTEND Internal Medicine
PROC: 3E033GC Introduction of Other Therapeutic Substance into Peripheral Vein, Percutaneous Approach (ICD-10-PCS; principal; 2019-11-24)
PROC: 3E0337Z Introduction of Electrolytic and Water Balance Substance into Peripheral Vein, Percutaneous Approach (ICD-10-PCS; 2019-11-24)
DX: R79.89 Other specified abnormal findings of blood chemistry (principal); C25.9 Malignant neoplasm of pancreas, unspecified; Z79.899 Other long term (current) drug therapy; Z86.718 Personal history of other venous thrombosis and embolism; M54.5 Low back pain; G89.29 Other chronic pain; E11.9 Type 2 diabetes mellitus without complications; Z88.6 Allergy status to analgesic agent; Z88.8 Allergy status to other drugs, medicaments and biological substances; Z79.01 Long term (current) use of anticoagulants
CPT/HCPCS: 36415; 70450-TC; 71045-TC-FY; 72125-TC; 80053; 81003; 82550; 82553; 82962; 84484; 85027; 85610; 85730; 87086; 93005; 93010; 96361; 96365; 99285-25; G0378; J1644; U0003